=== PATIENT | female | born 2000 | race Caucasian/White ===

== ENCOUNTER 2019-07-10 21:32 | Emergency (ER) | payer SELFPAY ==
[2019-07-10 22:41] LABS: Urine Blood TRACE (NEG); Urine Glucose TRACE (NEG); Urine Protein 2+ (NEG); Urine pH 5.5 (5.0-7.0)
--- NOTE | 2019-07-10 22:48 | ER ---
Nurse's Notes [facility] Name: Kendy Mason Age: 19 yrs Sex: Female : 2000 Arrival Date: 07/10/2019 Time: 21:34 Bed 25 Private MD: Diagnosis: Urinary tract infection, site not specified Presentation: 07/10 21:40 Presenting complaint: Patient states: "I have a really really have bad UTI. I took Azos ca1 but it's not helping. Urinary symptoms started over a week ago. I also see blood when I wipe down there". Denies fever, vomiting, diarrhea. Reports nausea. Transition of care: patient was not received from another setting of care. Onset of symptoms was July 10, 2019. Risk Assessment: Do you want to hurt yourself or someone else? Patient reports no desire to harm self or others. Initial Sepsis Screen: Does the patient meet any 2 criteria? No. Patient's initial sepsis screen is negative. Does the patient have a suspected source of infection? No. Patient's initial sepsis screen is negative. Care prior to arrival: None. 21:40 Method Of Arrival: Ambulatory ca1 21:40 Acuity: PADILLA 3 ca1 [employer]: 21:46 LMP 06/13/2019 ca1 Historical: - Allergies: 21:44 No Known Allergies; ca1 - Home Meds: 21:44 None [Active]; ca1 - PMHx: 21:44 None; ca1 - PSHx: 21:44 None; ca1 - Immunization history:: Adult Immunizations up to date, Flu vaccine is not up to date. - Coronavirus screen:: The patient has NOT traveled to [place], [place], or [place] in the past 14 days. The patient has NOT had contact with known/suspected case of Coronavirus?. - Social history:: Smoking status: Patient denies any tobacco usage or history of. - Ebola Screening: : Patient negative for fever greater than or equal to 101.5 degrees Fahrenheit, and additional compatible Ebola Virus Disease symptoms Patient denies exposure to infectious person Patient denies travel to an Ebola-affected area in the 21 days before illness onset No symptoms or risks identified at this time. Vital Signs: 21:44 BP 120 / 60; Pulse 89; Resp 17 S; Temp 97.4(O); Pulse Ox 98% on R/A; Weight 63.5 kg ca1 (R); Height 5 ft. 2 in. (157.48 cm) (M); 21:44 Body Mass Index 25.61 (63.50 kg, 157.48 cm) ca1 ED Course: 21:34 Patient arrived in ED. ag3 21:44 Triage completed. ca1 21:44 Arm band placed on right wrist. ca1 21:54 Isaiah Zacarias MD is Attending Physician. tw4 22:12 Marietta Eelna, RN is Primary Nurse. vc Administered Medications: No medications were administered Outcome: 22:48 Discharge ordered by . tw4 23:26 Patient left the ED. vc Signatures: Isaiah Zacarias MD MD 4 Ilda Marie 3 Melina Liu RN RN [facility] Marietta Elena RN RN vc
--- NOTE | 2019-07-11 23:29 | EDPHYS ---
Physician Documentation [facility] Name: Kendy Mason Age: 19 yrs Sex: Female : 2000 Arrival Date: 07/10/2019 Time: 21:34 Bed 25 Private MD: ED Physician Isaiah Zacarias HPI: 07/11 04:39 This 19 yrs old Female presents to ER via Ambulatory with complaints of Pain tw4 With Urination. 04:39 The patient presents with urinary symptoms, dysuria, frequency. Onset: The tw4 symptoms/episode began/occurred today. Modifying factors: The symptoms are alleviated by nothing, the symptoms are aggravated by nothing. Associated signs and symptoms: The patient has no apparent associated signs or symptoms. Severity of symptoms: At their worst the symptoms were moderate, in the emergency department the symptoms are unchanged. The patient has not experienced similar symptoms in the past. [employer]: 07/10 21:46 LMP 06/13/2019 ca1 Historical: - Allergies: 21:44 No Known Allergies; ca1 - Home Meds: 21:44 None [Active]; ca1 - PMHx: 21:44 None; ca1 - PSHx: 21:44 None; ca1 - Immunization history:: Adult Immunizations up to date, Flu vaccine is not up to date. - Coronavirus screen:: The patient has NOT traveled to [place], [place], or [place] in the past 14 days. The patient has NOT had contact with known/suspected case of Coronavirus?. - Social history:: Smoking status: Patient denies any tobacco usage or history of. - Ebola Screening: : Patient negative for fever greater than or equal to 101.5 degrees Fahrenheit, and additional compatible Ebola Virus Disease symptoms Patient denies exposure to infectious person Patient denies travel to an Ebola-affected area in the 21 days before illness onset No symptoms or risks identified at this time. ROS: 07/11 04:39 Positive for urinary symptoms, burning with urination, difficulty urinating, tw4 Negative for injury or acute deformity, urinary frequency, hematuria, pelvic pain, flank pain, vaginal itching, menstrual abnormality. Constitutional: Negative for fever, chills, and weight loss, Eyes: Negative for injury, pain, redness, and discharge, Cardiovascular: Negative for chest pain, palpitations, and edema, Respiratory: Negative for shortness of breath, cough, wheezing, and pleuritic chest pain, Abdomen/GI: Negative for abdominal pain, nausea, vomiting, diarrhea, and constipation, Back: Negative for injury and pain, MS/Extremity: Negative for injury and deformity, Skin: Negative for injury, rash, and discoloration, Neuro: Negative for headache, weakness, numbness, tingling, and seizure. Exam: 04:39 Constitutional: This is a well developed, well nourished patient who is awake, alert, tw4 and in no acute distress. Head/Face: Normocephalic, atraumatic. Chest/axilla: Normal chest wall appearance and motion. Nontender with no deformity. No lesions are appreciated. Cardiovascular: Regular rate and rhythm with a normal S1 and S2. No gallops, murmurs, or rubs. Normal PMI, no JVD. No pulse deficits. Respiratory: Lungs have equal breath sounds bilaterally, clear to auscultation and percussion. No rales, rhonchi or wheezes noted. No increased work of breathing, no retractions or nasal flaring. Abdomen/GI: Soft, non-tender, with normal bowel sounds. No distension or tympany. No guarding or rebound. No evidence of tenderness throughout. Back: No spinal tenderness. No costovertebral tenderness. Full range of motion. Skin: Warm, dry with normal turgor. Normal color with no rashes, no lesions, and no evidence of cellulitis. MS/ Extremity: Pulses equal, no cyanosis. Neurovascular intact. Full, normal range of motion. Neuro: Awake and alert, GCS 15, oriented to person, place, time, and situation. Cranial nerves II-XII grossly intact. Motor strength 5/5 in all extremities. Sensory grossly intact. Cerebellar exam normal. Normal gait. Vital Signs: 07/10 21:44 BP 120 / 60; Pulse 89; Resp 17 S; Temp 97.4(O); Pulse Ox 98% on R/A; Weight 63.5 kg ca1 (R); Height 5 ft. 2 in. (157.48 cm) (M); 21:44 Body Mass Index 25.61 (63.50 kg, 157.48 cm) ca1 MDM: 21:54 Patient medically screened. tw4 07/11 04:39 Differential diagnosis: urinary tract infection. Data reviewed: vital signs, nurses tw4 notes. Data reviewed: lab test result(s), urinalysis, bacteruria. Data interpreted: Pulse oximetry: Interpretation: normal. Counseling: I had a detailed discussion with the patient and/or guardian regarding: the historical points, exam findings, and any diagnostic results supporting the discharge/admit diagnosis. Special discussion: I discussed with the patient/guardian in detail that at this point there is no indication for admission to the hospital. It is understood, however, that if the symptoms persist or worsen the patient needs to return immediately for re-evaluation. 07/10 22:27 Order name: Urine Dipstick--Ancillary (enter results) cm6 07/10 22:20 Order name: Urine Dipstick-Ancillary (obtain specimen); Complete Time: 22:31 tw4 07/10 22:27 Order name: Urine --Ancillary (enter results) cm6 Administered Medications: No medications were administered Disposition: 05:20 Chart complete. Disposition: 07/10/19 22:48 Discharged to Home. Impression: Urinary tract infection, site not specified. - Condition is Stable. - Discharge Instructions: Urinary Tract Infection, Adult. - Prescriptions for Pyridium 200 mg Oral Tablet - take 1 tablet by ORAL route every 8 hours for 3 days; 9 tablet. Zofran 4 mg Oral Tablet - take 1 tablet by ORAL route every 12 hours As needed; 20 tablet. Macrobid 100 mg Oral Capsule - take 1 capsule by ORAL route every 12 hours for 10 days; 20 capsule. - Medication Reconciliation Form, Thank You Letter, Antibiotic Education, Prescription Opioid Use form. - Follow up: Private Physician; When: Upon discharge from the Emergency Department; Reason: Recheck today's complaints, Continuance of care. - Problem is new. - Symptoms have improved. Signatures: Dispatcher [employer] EDMS Isaiah Zacarias MD MD tw4 Melina Liu RN RN ca1 Marietta Elena RN RN vc Corrections: (The following items were deleted from the chart) 07/10 23:26 22:48 07/10/2019 22:48 Discharged to Home. Impression: Urinary tract infection, site vc not specified. Condition is Stable. Forms are Medication Reconciliation Form, Thank You Letter, Antibiotic Education, Prescription Opioid Use. Follow up: Private Physician; When: Upon discharge from the Emergency Department; Reason: Recheck today's complaints, Continuance of care. Problem is new. Symptoms have improved. tw4
== END 2019-07-10 23:26 | disposition home or self-care (01) ==
LOC: ER 21:32
DX: N39.0 Urinary tract infection, site not specified (principal)
CPT/HCPCS: 81003; 81025; 99281

== ENCOUNTER 2023-10-10 15:51 | Emergency (ER) | payer SELFPAY ==
[2023-10-10] MEDS ORDERED: ONDANSETRON 4 MG/2 ML VIAL ONE (16:37)
[2023-10-10] MEDS ORDERED: NA CHLORIDE 0.9% 1,000 ML ONE (16:38)
[2023-10-10] MEDS ORDERED: KETOROLAC 30 MG/ML INJ ONE (16:38)
[2023-10-10 17:04] LABS: Absolute Basophils 0.1 K/uL (0-0.5); Absolute Eosinophils 0.1 K/uL (0-0.5); Absolute Lymphocytes (CBC) 2.3 K/uL (0.7-4.9); Absolute Monocytes 0.6 K/uL (0.1-1.3); Absolute Neutrophil 7.5 K/uL (1.8-8.0); Basophils % 0.6 % (0-1.3); Eosinophils % 1.3 % (0-4.4); Hematocrit 39.9 % (36.0-45.0); Hemoglobin 13.2 g/dL (12.0-15.0); Lymphocytes % 21.8 % (15.3-44.8); MCH 27.9 pg (27.0-35.0); MCHC 33.2 g/dL (32.0-36.0); MCV 84.1 fL (80-100); MPV 8.1 fL (7.6-11.3); Monocytes % 5.5 % (3.3-12.3); Neutrophils % 70.8 % (41.7-73.7); Platelets 318 thou/uL (152-406); RBC Red Blood Cell Count 4.74 M/uL (3.86-4.86); Red Cell Distribution Width 13.5 % (12.1-15.2)
[2023-10-10 17:06] LABS: Specific Gravity 1.025 (1.005-1.030)
[2023-10-10 17:19] LABS: Albumin 3.8 g/dL (3.4-5.0); Albumin/Globulin Ratio 0.9 (1.1-1.8); Anion Gap 8.8 mEq/L (5.0-15.0); Bilirubin Total 0.8 mg/dL (0.2-1.0); Globulin 4.1 g/dL (2.3-3.5); Potassium 3.8 mEq/L (3.5-5.1); Protein, Total 7.9 g/dL (6.4-8.2)
[2023-10-10 17:38] LABS: Urine Bacteria <20 /HPF (<20); Urine Culture Reflex Order NOT NEEDED; Urine Micro Reflex YN NO BILL MICROSCOPIC; Urine Mucus Slight /HPF (None Seen); Urine RBC <5 /HPF (None Seen)
--- NOTE | 2023-10-10 18:27 | RAD REPORT ---
EXAM DESCRIPTION: US - Transvaginal OB - 10/10/2023 6:14 pm CLINICAL HISTORY: positive test;Abd pain COMPARISON: OBSTETRICAL COMPLETE dated 10/06/2014 FINDINGS: A single gestational sac is seen within the uterus. The shape of the sac is somewhat oblon g. Within the sac is a single pole with crown-rump length of 8 mm, correlating to estimated ges tational age of 6 weeks 6 days. Estimated date of delivery is 05/30/2024. Heart rate is 122 BPM. The placenta is not yet developed due to early gestational age. The maternal adnexa and ovaries are within normal limits. Normal Doppler blood flow was demonstrated to both ovaries. IMPRESSION: Single live early intrauterine gestation with estimated gestational age of 6 weeks 6 day s, LEONARDO 05/30/2024. Heart rate is 122 BPM.
--- NOTE | 2023-10-10 19:33 | ER ---
Nurse's Notes [facility] Name: Kendy Mason Age: 23 yrs Sex: Female : 2000 Arrival Date: 10/10/2023 Time: 15:51 Bed 13 Private MD: Diagnosis: related conditions, unspecified, first trimester;Lower abdominal pain, unspecified;Headache Presentation: 10/09 15:58 Chief complaint: Patient states: RLQ pain that started last night/early this morning. as6 Coronavirus screen: At this time, the client does not indicate any symptoms associated with coronavirus-19. Ebola Screen: No symptoms or risks identified at this time. Initial Sepsis Screen: Does the patient meet any 2 criteria? No. Patient's initial sepsis screen is negative. Does the patient have a suspected source of infection? No. Patient's initial sepsis screen is negative. Risk Assessment: Do you want to hurt yourself or someone else? Patient reports no desire to harm self or others. Onset of symptoms was October 10, 2023. 15:58 Acuity: PADILLA 3 as6 15:58 Method Of Arrival: Ambulatory as6 Triage Assessment: 16:00 Headache History: The patient has had previous headaches and this one is similar to bp previous episodes. General: Appears in no apparent distress. Behavior is cooperative, appropriate for age, anxious. Pain: Complains of pain in head Pain currently is 6 out of 10 on a pain scale. Pain began 1 day ago. Also complains of no other associated symptoms. Neuro: Level of Consciousness is awake, alert, obeys commands, Oriented to Appropriate for age. [employer]GER: 16:00 LMP 09/11/2023, unknown as6 Historical: - Allergies: 16:00 No Known Allergies; as6 - PMHx: 16:00 None; as6 - PSHx: 16:00 None; as6 - Immunization history:: Adult Immunizations up to date. - Infectious Disease History:: Denies. - Social history:: Smoking status: Patient denies any tobacco usage or history of. Screenin:00 [facility] ED Fall Risk Assessment (Adult) History of falling in the last 3 months, bp including since admission No falls in past 3 months (0 pts). Abuse screen: Denies threats or abuse. Denies injuries from another. Nutritional screening: No deficits noted. Tuberculosis screening: No symptoms or risk factors identified. Assessment: 16:00 General: Appears in no apparent distress. Behavior is cooperative, appropriate for age, bp anxious, SEE TRIAGE NOTE. Pain: Complains of pain in head. Neuro: Reports headache. GI: Reports lower abdominal pain. 18:00 Reassessment: No changes from previously documented assessment. Patient is alert, bp oriented x 3, equal unlabored respirations, skin warm/dry/pink. 19:10 General: Appears in no apparent distress. comfortable, Behavior is calm, cooperative. jw7 Pain: Denies pain. Neuro: Level of Consciousness is awake, alert, obeys commands, Oriented to person, place, time, situation. Cardiovascular: Heart tones S1 S2 present Capillary refill < 3 seconds Clubbing of nail beds is absent JVD is absent Patient's skin is warm and dry. Respiratory: Airway is patent Trachea midline Respiratory effort is even, unlabored, Respiratory pattern is regular, symmetrical, Breath sounds are clear bilaterally. GI: Abdomen is round non-distended, Bowel sounds present X 4 quads. Abd is soft and non tender X 4 quads. : No deficits noted. No signs and/or symptoms were reported regarding the genitourinary system. EENT: No deficits noted. No signs and/or symptoms were reported regarding the EENT system. Derm: Skin is intact, is healthy with good turgor, Skin is dry, Skin is normal, Skin temperature is warm. Musculoskeletal: Circulation, motion, and sensation intact. Range of motion: intact in all extremities. Vital Signs: 15:58 BP 132 / 80; Pulse 86; Resp 17 S; Temp 98; Pulse Ox 97% ; Weight 79.38 kg (R); Height 5 as6 ft. 2 in. (R); Pain 4/10; 18:00 BP 117 / 82; Pulse 82; Resp 16; Pulse Ox 100% ; bp 19:00 BP 100 / 74; Pulse 84; Resp 16 S; Pulse Ox 100% on R/A; jw7 15:58 Body Mass Index 32.01 (79.38 kg, 157.48 cm) as6 15:58 Pain Scale: Adult as6 ED Course: 15:55 Patient arrived in ED. im 15:58 Arm band placed on left wrist. as6 16:00 Triage completed. as6 16:04 Eliceo Saucedo PA is PHCP. cp 16:04 Eliceo Kathleen MD is Attending Physician. cp 16:17 Leonardo Dailey, MARTINEZ is Primary Nurse. bp 16:50 Inserted saline lock: 22 gauge in right forearm, using aseptic technique. Blood bp collected. 16:52 Urine Microscopic Only Sent. bp 16:52 Test, Urine Sent. bp 16:52 Lipase Sent. bp 16:52 CMP Sent. bp 16:52 CBC with Diff Sent. bp 18:00 Patient has correct armband on for positive identification. bp 18:16 US Transvaginal Ob In Process Unspecified. EDMS 18:39 Quantitative Hcg Sent. bp 18:39 Abo/rh Typing Sent. bp 19:00 Provided Education on: Use of Call Light. jw7 19:48 No provider procedures requiring assistance completed. IV discontinued, intact, jw7 bleeding controlled, No redness/swelling at site. Pressure dressing applied. Administered Medications: 16:51 Drug: NS 0.9% IV 1000 ml IV at 1 bolus Per protocol; 1000 mL bolus Route: IV; Rate: 1 bp bolus; Site: right forearm; 19:27 Follow up: Response: No adverse reaction; IV Status: Completed infusion; IV Intake: jw7 1000ml 16:51 Drug: TORadol - Ketorolac IVP 15 mg IVP once Route: IVP; Site: right forearm; bp 19:27 Follow up: Response: No adverse reaction; Marked relief of symptoms; Pain is decreased jw7 16:51 Drug: Ondansetron IVP 4 mg IVP once; over 2 minutes Route: IVP; Site: right forearm; bp 19:27 Follow up: Response: No adverse reaction; Marked relief of symptoms; Nausea is decreasedjw7 19:45 Drug: Acetaminophen PO 1000 mg PO once Route: PO; jw7 19:45 Follow up: Response: No adverse reaction; Medication administered at discharge. jw7 Medication: 18:00 VIS not applicable for this client. bp Intake: 19:27 IV: 1000ml; Total: 1000ml. jw7 Outcome: 19:32 Discharge ordered by . cp 19:48 Discharged to home ambulatory, jw7 19:48 Condition: stable 19:48 Discharge instructions given to patient, Instructed on discharge instructions, follow up and referral plans. medication usage, Demonstrated understanding of instructions, follow-up care, medications, Prescriptions given X 1, 19:49 Patient left the ED. jw7 Signatures: Dispatcher [employer] EDMS Eliceo Saucedo PA PA cp Peltier, Brian, RN RN bp Reno Rojas RN RN as6 Kaylie Torres RN RN jw7 Karoline Bowen
--- NOTE | 2023-10-10 19:33 | EDPHYS ---
Physician Documentation [facility] Name: Kendy Mason Age: 23 yrs Sex: Female : 2000 Arrival Date: 10/10/2023 Time: 15:51 Bed 13 Private MD: ED Physician Eliceo Kathleen HPI: 10/09 16:35 This 23 yrs old Female presents to ER via Ambulatory with complaints of cp Headache, Abdominal Pain. 16:35 The patient presents with abdominal pain right lower quadrant. Onset: The cp symptoms/episode began/occurred this morning, and became worse today. The symptoms do not radiate. Associated signs and symptoms: Pertinent negatives: anorexia, diarrhea, dysuria, fever, vaginal discharge, vaginal bleeding. The symptoms are described as waxing/waning. 16:35 Modifying factors: the symptoms are aggravated by movement. Severity of pain: in the cp emergency department the pain is unchanged despite home interventions. 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 - Infectious Disease History:: Denies. - Social history:: Smoking status: Patient denies any tobacco usage or history of. ROS: 16:40 Eyes: Negative for injury, pain, redness, and discharge, cp 16:40 Constitutional: Negative for body aches, chills, fever, poor PO intake, 16:40 ENT: Negative for drainage from ear(s), ear pain, sore throat, difficulty swallowing, difficulty handling secretions, 16:40 Cardiovascular: Negative for chest pain, edema, palpitations, 16:40 Respiratory: Negative for cough, shortness of breath, wheezing, 16:40 Abdomen/GI: Positive for abdominal pain, of the right lower quadrant and right adnexal, Negative for vomiting, diarrhea, constipation, anorexia, 16:40 : Negative for urinary symptoms, hematuria, flank pain, burning with urination, vaginal bleeding, vaginal discharge, 16:40 Skin: Negative for rash, 16:40 Neuro: Positive for headache, cp 16:40 All other systems are negative, cp Exam: 16:45 Constitutional: The patient appears in no acute distress, alert, awake, non-toxic, well cp developed, well nourished, overweight 16:45 Head/Face: Normocephalic, atraumatic. cp 16:45 Eyes: Periorbital structures: appear normal, Conjunctiva: normal, no exudate, no injection, Sclera: no appreciated abnormality, Lids and lashes: appear normal, bilaterally, 16:45 ENT: External ear(s): are unremarkable, Nose: is normal, Mouth: Lips: moist, Oral mucosa: pink and intact, moist, Posterior pharynx: Airway: no evidence of obstruction, patent, 16:45 Chest/axilla: Inspection: normal, 16:45 Cardiovascular: Rate: normal, Rhythm: regular, 16:45 Respiratory: the patient does not display signs of respiratory distress, Respirations: normal, no use of accessory muscles, no retractions, labored breathing, is not present, Breath sounds: are clear throughout, no decreased breath sounds, no stridor, no wheezing, 16:45 Abdomen/GI: Inspection: abdomen appears normal, Bowel sounds: active, all quadrants, Palpation: soft, in all quadrants, moderate abdominal tenderness, in the right lower quadrant and right adnexa, rebound tenderness, is not appreciated, involuntary guarding, is not appreciated, 16:45 Back: pain, is absent, ROM is normal, Vital Signs: 15:58 BP 132 / 80; Pulse 86; Resp 17 S; Temp 98; Pulse Ox 97% ; Weight 79.38 kg (R); Height 5 as6 ft. 2 in. (R); Pain 4/10; 18:00 BP 117 / 82; Pulse 82; Resp 16; Pulse Ox 100% ; bp 19:00 BP 100 / 74; Pulse 84; Resp 16 S; Pulse Ox 100% on R/A; jw7 15:58 Body Mass Index 32.01 (79.38 kg, 157.48 cm) as6 15:58 Pain Scale: Adult as6 MDM: 16:05 Patient medically screened. cp 19:30 Data reviewed: vital signs, nurses notes, lab test result(s), radiologic studies, CT cp scan. 19:30 Differential diagnosis: appendicitis, Ectopic , non-specific abd pain, Ovarian cp Torsion, Pelvic Inflammatory Disease, Pyelonephritis, Tubal Ovarian Abcess, Ureterolithiasis, urinary tract infection. I considered the following discharge prescriptions or medication management in the emergency department Medications were administered in the Emergency Department. See MAR. Test considered but Not performed: CT: abdomen/pelvis. Counseling: I had a detailed discussion with the patient and/or guardian regarding the historical points, exam findings, and any diagnostic results supporting the discharge/admit diagnosis, lab results, radiology results, the need for outpatient follow up, an OB/Gyne specialist, to return to the emergency department if symptoms worsen or persist or if there are any questions or concerns that arise at home. Response to treatment: the patient's symptoms have markedly improved after treatment, and as a result, I will discharge patient. 10/09 16:07 Order name: Urine Microscopic Only; Complete Time: 18:01 cp 10/09 16:07 Order name: Test, Urine; Complete Time: 17:30 cp 10/09 16:32 Order name: CBC with Diff; Complete Time: 17:30 cp 10/09 16:32 Order name: CMP; Complete Time: 17:30 cp 10/09 18:01 Interpretation: Normal except: NA 134; AST 9; GLOB 4.1; A/G 0.9. cp 10/09 16:32 Order name: Lipase; Complete Time: 17:30 cp 10/09 17:30 Order name: Abo/rh Typing; Complete Time: 19:26 cp 10/09 19:26 Interpretation: Reviewed. cp 10/09 17:30 Order name: Quantitative Hcg; Complete Time: 19:26 cp 10/09 19:26 Interpretation: Reviewed. cp 10/09 17:30 Order name: US Transvaginal Ob; Complete Time: 18:55 cp 10/09 19:27 Interpretation: Report reviewed. cp 10/09 16:32 Order name: IV Saline Lock; Complete Time: 16:51 cp 10/09 16:32 Order name: Labs collected and sent; Complete Time: 16:51 cp 10/09 17:30 Order name: NPO; Complete Time: 17:41 cp Administered Medications: 16:51 Drug: NS 0.9% IV 1000 ml IV at 1 bolus Per protocol; 1000 mL bolus Route: IV; Rate: 1 bp bolus; Site: right forearm; 19:27 Follow up: Response: No adverse reaction; IV Status: Completed infusion; IV Intake: jw7 1000ml 16:51 Drug: TORadol - Ketorolac IVP 15 mg IVP once Route: IVP; Site: right forearm; bp 19:27 Follow up: Response: No adverse reaction; Marked relief of symptoms; Pain is decreased jw7 16:51 Drug: Ondansetron IVP 4 mg IVP once; over 2 minutes Route: IVP; Site: right forearm; bp 19:27 Follow up: Response: No adverse reaction; Marked relief of symptoms; Nausea is decreasedjw7 19:45 Drug: Acetaminophen PO 1000 mg PO once Route: PO; jw7 19:45 Follow up: Response: No adverse reaction; Medication administered at discharge. jw7 Disposition: 22:15 Co-signature as Attending Physician, Eliceo Kathleen MD I agree with the assessment and guille plan of care. Disposition Summary: 10/10/23 19:32 Discharge Ordered Notes: Location: Home cp Problem: new cp Symptoms: have improved cp Condition: Stable cp Diagnosis - related conditions, unspecified, first trimester cp - Lower abdominal pain, unspecified cp - Headache cp Followup: cp - With: Private Physician - When: 1 week - Reason: Recheck today's complaints Discharge Instructions: - Discharge Summary Sheet cp - Abdominal Pain During cp - Care cp - First Trimester of cp Forms: - Medication Reconciliation Form cp - Antibiotic Education cp - Prescription Opioid Use cp - Patient Portal Instructions cp - Leadership Thank You Letter cp Prescriptions: - [id number] fumarate-FA - take 1 tablet ORAL route once daily; 60 tablet; Refills: 0, Product Selection cp Permitted Signatures: Dispatcher [employer] Eliceo Cordova MD MD cha Page, Corey, PA PA cp Leonardo Dailey, RN RN Reno Artis RN RN as6 Kaylie Torres RN RN jw7 Corrections: (The following items were deleted from the chart) 16:07 16:07 Urine Microscopic+U.LAB.BRZ ordered. EDMS EDMS 16:07 16:07 Test, Urine+UC.LAB.BRZ ordered. EDMS EDMS 16:32 16:32 CBC+H.LAB.BRZ ordered. EDMS EDMS 16:32 16:32 COMPREHENSIVE METABOLIC PANEL+C.LAB.BRZ ordered. EDMS EDMS 16:32 16:32 LIPASE+C.LAB.BRZ ordered. EDMS EDMS 16:32 16:32 Abdomen Pelvis W Con+CT.RAD.BRZ ordered. EDMS EDMS 17:31 17:31 Transvaginal Ob+US.RAD.BRZ ordered. EDMS EDMS 10/10 16:30 Constitutional: Negative for body aches, chills, fever, poor PO intake, cp cp /06 24:10/09 16:30 Cardiovascular: Negative for chest pain, edema, palpitations, cp cp 05/10/09 16:30 Respiratory: Negative for cough, shortness of breath, wheezing, cp cp 05/06 24:10/09 16:30 Abdomen/GI: Positive for abdominal pain, of the right lower quadrant and cp right adnexal, Negative for vomiting, diarrhea, constipation, anorexia, cp /10/09 16:30 : Negative for urinary symptoms, hematuria, flank pain, burning with cp urination, vaginal bleeding, vaginal discharge, cp /10/09 16:30 Eyes: Negative for injury, pain, redness, and discharge, cp cp 05/06 24:10/09 16:30 ENT: Negative for drainage from ear(s), ear pain, sore throat, difficulty cp swallowing, difficulty handling secretions, cp /06 24:10/09 16:30 Skin: Negative for rash, cp cp 05/10/09 16:30 All other systems are negative, cp cp 05/06 24:10/09 16:40 All other systems are negative, cp cp
[2023-10-10] MEDS ORDERED: ACETAMINOPHEN 500 MG TAB ONE (19:39)
[2023-10-10 20:41] VITALS: BP 100/74; TEMP 98; O2SAT 100
== END 2023-10-10 19:49 | disposition home or self-care (01) ==
LOC: ER 15:51
DX: O26.891 Other specified pregnancy related conditions, first trimester (principal); R51.9 Headache, unspecified; R10.31 Right lower quadrant pain; Z3A.01 Less than 8 weeks gestation of pregnancy
CPT/HCPCS: 36415; 76817; 80053; 81015; 81025; 83690; 84702; 85025; 86900; 86901; 96361; 96374; 96375; 99284; J2405; J7030

== ENCOUNTER 2024-05-18 12:58 | Emergency (ER) | payer SELFPAY ==
--- OUTSIDE RECORDS SUMMARY | 2024-05-18 13:02 | XMS REPORT | Continuity of Care Document ---
Author Name Unknown Address [address] [facility] [address] [place] [address] [facility] thconnect Address [address] [facility] [address] [place] [address] Care Team Providers Care Almond Roaster Name Role Phone Lizbeth Topete Primary Care Physicia n BRANT MAYNARD Attending Clinician Unavailable Brant Landeros Attending Clinician [phone] LIZBETH VALERIO Attending Clinician Unavail Fabiana Momin CNM Attending Clinician [phone] FABIANA TRAN Attending Clinician UnavailLizbeth Brown Attending Clinician + FELICITA WILLIAM Attending Clinician UnavailFelicita Islas Attending Clinician + [phone] Doctor Unassigned, [place] Attending Clinician BEATRICE Porras Attending Clinician Jaime Mariscal RN, Dorene Estevez Attending Clinician UnavailBeatrice Espnio Attending Clinician [phone] [facility] Unavailable Payers Payer Name Policy Type Policy Number Effective Date Expirati on Date Source Problems Condition Name Condition Details Condition Category Status Onset Date Resolution Date Last Treatment Date Treating Clinician Comments Source Class 1 obesity due to excess calories with body mass index (BMI) of 31.0 to 31.9 in adult, unspecifie d whether serious comorbidit y present Class 1 obesity due to excess calories with body mass index (BMI) of 31.0 to 31.9 in adult, unspecifie d whether serious comorbidit y present Disease Active 0 8- 00:00: 00 [facility] BMI 31.0-31.9, adult BMI 31.0-31.9, adult Disease Resolve d 0 8- 00:00: 00 2024-02-23 00:00:00 2024-02-23 14:10:19 [facility] Class 1 obesity due to excess calories with body mass index (BMI) of 31.0 to 31.9 in adult, unspecifie d whether serious comorbidit y present Class 1 obesity due to excess calories with body mass index (BMI) of 31.0 to 31.9 in adult, unspecifie d whether serious comorbidit y present Disease Resolve d 0 8-23 00:00: 00 2022-10-25 00:00:00 2022-10-25 19:47:39 [facility] Dysuria Dysuria Disease Resolve d 9-16 00:00: 00 2022-10-25 00:00:00 2022-10-25 19:47:34 [facility] Over weight Over weight Disease Resolve d 0 2-26 00:00: 00 2022-10-25 00:00:00 2022-10-25 19:47:30 [facility] Screening examinatio n for STD (sexually transmitte d disease) Screening examinatio n for STD (sexually transmitte d disease) Disease Resolve d 2016-06 1 00:00: 00 2022-10-25 00:00:00 2022-10-25 19:47:32 [facility] Vaginal discharge Vaginal discharge Disease Resolve d 0 2-26 00:00: 00 2021-02-25 00:00:00 2021-02-25 16:30:03 [facility] Dysmenorrh ea Dysmenorrh ea Disease Resolve d 2019-0 3-12 00:00: 00 2021-02-25 00:00:00 2021-02-25 15:42:23 [facility] care and examinatio n of lactating mother care and examinatio n of lactating mother Disease Resolve d 2016-06 0-18 00:00: 00 2017-04-14 00:00:00 2017-04-14 15:54:11 [facility] (spontaneo us vaginal delivery) (spontaneo us vaginal delivery) Disease Resolve d 03-05 00:00: 00 2017-04-14 00:00:00 2017-04-14 15:54:17 [facility] Liveborn infant by vaginal delivery Liveborn by vaginal delivery Disease Resolve d 03-05 00:00: 00 2017-04-14 00:00:00 2017-04-14 15:54:14 [facility] 39 weeks gestation of 39 weeks gestation of Disease Resolve d 03-03 00:00: 00 2017-04-14 00:00:00 2017-04-14 15:54:13 [facility] Supervisio n of high risk , antepartum , third trimester Supervisio n of high risk , antepartum , third trimester Disease Resolve d 01-03 00:00: 00 2017-04-14 00:00:00 2017-04-14 15:54:16 [facility] Multiparit y Multiparit y Disease Resolve d 10-05 00:00: 00 2017-04-14 00:00:00 2017-04-14 15:54:15 [facility] Unspecifie d hemorrhage in early , antepartum Unspecifie d hemorrhage in early , antepartum Disease Resolve d 01-03 00:00: 00 2017-03-06 00:00:00 2017-03-06 04:11:21 [facility] Missed menses Missed menses Disease Resolve d 10-05 00:00: 00 2017-03-04 00:00:00 2017-03-04 10:06:07 [facility] Supervisio n of high-risk of elderly multigravi da, third trimester Supervisio n of high-risk of elderly multigravi da, third trimester Disease Resolve d 12-20 00:00: 00 2017-01-03 00:00:00 2017-01-03 15:54:55 [facility] Supervisio n of high risk , antepartum , second trimester Supervisio n of high risk , antepartum , second trimester Disease Resolve d 10-05 00:00: 00 2016-12-20 00:00:00 2016-12-20 15:01:20 [facility] Allergies, Adverse Reactions, Alerts Allergy Name Allergy Type Status Severity Reaction(s) Onset Date Inactive Date Treating Clinician Comments Source NO KNOWN ALLERGIE S Drug Class Active [facility] Social History Social Habit Start Date Stop Date Quantity Comments Source History SDOH Alcohol Frequency [facility] History SDOH Alcohol Std Drinks [facility] History SDOH Alcohol Binge [facility]coholic beverage intake 2024-03-08 00:00:00 2024-03-08 00:00:00 Current drinker of alcohol (finding) [facility] History of Social function 2024-02-23 00:00:00 2024-02-23 00:00:00 [facility] Exposure to SARS-CoV-2 (event) 2022-10-15 00:00:00 2022-10-25 13:30:00 Not sure [facility] Tobacco use and exposure 2022-02-01 00:00:00 2022-02-01 00:00:00 Smokeless tobacco non-user [facility] Alcohol Comment 2022-02-01 00:00:00 2022-02-01 00:00:00 socially [facility] Alcohol intake 2019-08-22 00:00:00 2019-08-22 00:00:00 Current non-drinker of alcohol (finding) [facility] Sex assigned at 2000 00:00:00 2000 00:00:00 [facility] Smoking Status Start Date Stop Date Source Never smoked tobacco [facility] Medications Ordered Medication Name Filled Medication Name Start Date Stop Date Current Medication? Ordering Clinician Indication Dosage Frequency Signature (SIG) Comments Components Source levonorgest rel-ethinyl estradiol (SRONYX) 0.1-20 mg-mcg per tablet 03-08 00:00: 00 Yes [id number] 1{tbl} Take 1 tablet by mouth in the morning. [facility] doxycycline hyclate 100 mg capsule 02-25 00:00: 00 03-05 04:59 :00 Yes [id number] 100mg Take 1 capsule by mouth every 12 (twelve) hours for 7 days. [facility] metroNIDAZO LE 500 mg tablet 02-22 00:00: 00 Yes [id number] 500mg Take 1 tablet by mouth every 12 (twelve) hours. [facility] Nitrofurant oin&Nit. Macrocryst (MACROBID) 100 mg capsule 10-31 00:00: 00 11-11 04:59 :00 No [id number] 100mg Take 1 capsule by mouth in the morning and 1 capsule in the evening. Do all this for 10 days. [facility] levonorgest rel-ethinyl estradiol (SRONYX) 0.1-20 mg-mcg per tablet 07-20 00:00: 00 03-08 00:00 :00 No [id number] 1{tbl} Take 1 tablet by mouth in the morning. [facility] metroNIDAZO LE 500 mg tablet 2021-06 00:00: 00 10-25 00:00 :00 No [id number] 500mg Take 1 tablet by mouth in the morning and 1 tablet in the evening. [facility] levonorgest rel-ethinyl estradiol (SRONYX) 0.1-20 mg-mcg per tablet 2021-06 00:00: 00 07-20 00:00 :00 No [id number] 1{tbl} Take 1 tablet by mouth in the morning. [facility] azithromyci n 500 mg tablet 02-02 00:00: 00 02-04 04:59 :00 No [id number] 1000mg Take 2 tablets by mouth in the morning for 1 day. [facility] ariadne davidson ioL-iron (MICROGESTI N FE) 1.5 mg-30 mcg (21)/75 mg (7) per tablet 02-25 00:00: 00 10-25 00:00 :00 No [id number] Take 1 tablet daily. Take 3 packages of pills continuous ly, skipping placebo pills. [facility] Immunizations Ordered Immunization Name Filled Immunization Name Date Status Comments Source Influenza, split virus, trivalent, PF (AFLURIA/FLUARIX/FLU LAVAL/FLUZONE) 2024-03-08 00:00:00 Completed Influenza, split virus, trivalent, PF (AFLURIA/FLUARIX/FLU LAVAL/FLUZONE) 2024-03-08 00:00:00 Completed TDAP 2016-12-20 00:00:00 Completed [facility] TDAP 2016-12-20 00:00:00 Completed [facility] TDAP 2016-12-20 00:00:00 Completed [facility] TDAP 2016-12-20 00:00:00 Completed [facility] TDAP 2016-12-20 00:00:00 Completed [facility] TDAP 2016-12-20 00:00:00 Completed [facility] TDAP 2016-12-20 00:00:00 Completed [facility] TDAP 2016-12-20 00:00:00 Completed [facility] HPV 2013-02-12 00:00:00 Completed [facility] HPV 2013-02-12 00:00:00 Completed [facility] HPV 2013-02-12 00:00:00 Completed [facility] HPV 2013-02-12 00:00:00 Completed [facility] HPV 2013-02-12 00:00:00 Completed [facility] HPV 2013-02-12 00:00:00 Completed [facility] HPV 2013-02-12 00:00:00 Completed HPV 2013-02-12 00:00:00 Completed HPV 2012-10-12 00:00:00 Completed [facility] HPV 2012-10-12 00:00:00 Completed [facility] HPV 2012-10-12 00:00:00 Completed [facility] HPV 2012-10-12 00:00:00 Completed [facility] HPV 2012-10-12 00:00:00 Completed [facility] HPV 2012-10-12 00:00:00 Completed [facility] HPV 2012-10-12 00:00:00 Completed [facility] HPV 2012-10-12 00:00:00 Completed [facility] Meningococcal Polysaccharide (groups A, C, Y and W-135) conjugate vaccine (MCV4P) 2011-01-28 00:00:00 Completed [facility] Varicella (varivax)(chicken pox) 2011-01-28 00:00:00 Completed [facility] Meningococcal Polysaccharide (groups A, C, Y and W-135) conjugate vaccine (MCV4P) 2011-01-28 00:00:00 Completed [facility] Varicella (varivax)(chicken pox) 2011-01-28 00:00:00 Completed [facility] Meningococcal Polysaccharide (groups A, C, Y and W-135) conjugate vaccine (MCV4P) 2011-01-28 00:00:00 Completed [facility] Varicella (varivax)(chicken pox) 2011-01-28 00:00:00 Completed [facility] Meningococcal Polysaccharide (groups A, C, Y and W-135) conjugate vaccine (MCV4P) 2011-01-28 00:00:00 Completed [facility] Varicella (varivax)(chicken pox) 2011-01-28 00:00:00 Completed [facility] Meningococcal Polysaccharide (groups A, C, Y and W-135) conjugate vaccine (MCV4P) 2011-01-28 00:00:00 Completed [facility] Varicella (varivax)(chicken pox) 2011-01-28 00:00:00 Completed [facility] Meningococcal Polysaccharide (groups A, C, Y and W-135) conjugate vaccine (MCV4P) 2011-01-28 00:00:00 Completed [facility] Varicella (varivax)(chicken pox) 2011-01-28 00:00:00 Completed [facility] Meningococcal Polysaccharide (groups A, C, Y and W-135) conjugate vaccine (MCV4P) 2011-01-28 00:00:00 Completed Varicella (varivax)(chicken pox) 2011-01-28 00:00:00 Completed Meningococcal Polysaccharide (groups A, C, Y and W-135) conjugate vaccine (MCV4P) 2011-01-28 00:00:00 Completed Varicella (varivax)(chicken pox) 2011-01-28 00:00:00 Completed HEPATITIS A 2004-06-24 00:00:00 Completed [facility] HEPATITIS A 2004-06-24 00:00:00 Completed [facility] HEPATITIS A 2004-06-24 00:00:00 Completed [facility] HEPATITIS A 2004-06-24 00:00:00 Completed [facility] HEPATITIS A 2004-06-24 00:00:00 Completed [facility] HEPATITIS A 2004-06-24 00:00:00 Completed [facility] HEPATITIS A 2004-06-24 00:00:00 Completed HEPATITIS A 2004-06-24 00:00:00 Completed HEPATITIS A 2004-01-20 00:00:00 Completed [facility] MMR 2004-01-20 00:00:00 Completed [facility] HEPATITIS A 2004-01-20 00:00:00 Completed [facility] MMR 2004-01-20 00:00:00 Completed [facility] HEPATITIS A 2004-01-20 00:00:00 Completed [facility] MMR 2004-01-20 00:00:00 Completed [facility] HEPATITIS A 2004-01-20 00:00:00 Completed [facility] MMR 2004-01-20 00:00:00 Completed [facility] HEPATITIS A 2004-01-20 00:00:00 Completed [facility] MMR 2004-01-20 00:00:00 Completed [facility] HEPATITIS A 2004-01-20 00:00:00 Completed [facility] MMR 2004-01-20 00:00:00 Completed [facility] HEPATITIS A 2004-01-20 00:00:00 Completed [facility] MMR 2004-01-20 00:00:00 Completed HEPATITIS A 2004-01-20 00:00:00 Completed [facility] MMR 2004-01-20 00:00:00 Completed Varicella (varivax)(chicken pox) 2000-05-15 00:00:00 Completed [facility] Varicella (varivax)(chicken pox) 2000-05-15 00:00:00 Completed [facility] Varicella (varivax)(chicken pox) 2000-05-15 00:00:00 Completed [facility] Varicella (varivax)(chicken pox) 2000-05-15 00:00:00 Completed [facility] Varicella (varivax)(chicken pox) 2000-05-15 00:00:00 Completed [facility] Varicella (varivax)(chicken pox) 2000-05-15 00:00:00 Completed [facility] Varicella (varivax)(chicken pox) 2000-05-15 00:00:00 Completed Varicella (varivax)(chicken pox) 2000-05-15 00:00:00 Completed MMR 1999-08-31 00:00:00 Completed [facility] MMR 1999-08-31 00:00:00 Completed [facility] MMR 1999-08-31 00:00:00 Completed [facility] MMR 1999-08-31 00:00:00 Completed [facility] MMR 1999-08-31 00:00:00 Completed [facility] MMR 1999-08-31 00:00:00 Completed [facility] MMR 1999-08-31 00:00:00 Completed MMR 1999-08-31 00:00:00 Completed TDAP Unknown Completed [facility] HPV Unknown Completed [facility] HEPATITIS A Unknown Completed [facility] Meningococcal Polysaccharide (groups A, C, Y and W-135) conjugate vaccine (MCV4P) Unknown Completed [facility] MMR Unknown Completed [facility] Varicella (varivax)(chicken pox) Unknown Completed [facility] TDAP Unknown Completed [facility] HPV Unknown Completed [facility] HEPATITIS A Unknown Completed [facility] Meningococcal Polysaccharide (groups A, C, Y and W-135) conjugate vaccine (MCV4P) Unknown Completed [facility] MMR Unknown Completed [facility] Varicella (varivax)(chicken pox) Unknown Completed [facility] TDAP Unknown Completed [facility] HPV Unknown Completed [facility] HEPATITIS A Unknown Completed [facility] Meningococcal Polysaccharide (groups A, C, Y and W-135) conjugate vaccine (MCV4P) Unknown Completed [facility] MMR Unknown Completed [facility] Varicella (varivax)(chicken pox) Unknown Completed [facility] TDAP Unknown Completed [facility] HPV Unknown Completed [facility] HEPATITIS A Unknown Completed [facility] Meningococcal Polysaccharide (groups A, C, Y and W-135) conjugate vaccine (MCV4P) Unknown Completed [facility] MMR Unknown Completed [facility] Varicella (varivax)(chicken pox) Unknown Completed [facility] TDAP Unknown Completed [facility] HPV Unknown Completed [facility] HEPATITIS A Unknown Completed [facility] Meningococcal Polysaccharide (groups A, C, Y and W-135) conjugate vaccine (MCV4P) Unknown Completed [facility] MMR Unknown Completed [facility] Varicella (varivax)(chicken pox) Unknown Completed [facility] Vital Signs Vital Name Observation Time Observation Value Comments S ource Systolic blood pressure 2024-03-08 18:31:00 105 mm[Hg] [facility] Diastolic blood pressure 2024-03-08 18:31:00 72 mm[Hg] [facility] Heart rate 2024-03-08 18:31:00 80 /min [facility] Body temperature 2024-03-08 18:31:00 36.78 Ivonne [facility] Respiratory rate 2024-03-08 18:31:00 18 /min [facility] Body height 2024-03-08 18:31:00 160 cm [facility] Body weight 2024-03-08 18:31:00 78.217 kg [facility] BMI 2024-03-08 18:31:00 30.55 kg/m2 [facility] Systolic blood pressure 2024-02-23 18:16:00 116 mm[Hg] [facility] Diastolic blood pressure 2024-02-23 18:16:00 69 mm[Hg] [facility] Heart rate 2024-02-23 18:16:00 81 /[facility] 2024-02-23 18:16:00 36.61 Ivonne [facility] Respiratory rate 2024-02-23 18:16:00 18 /min [facility] Body height 2024-02-23 18:16:00 160 cm [facility] weight 2024-02-23 18:16:00 78.217 kg [facility] BMI 2024-02-23 18:16:00 30.55 kg/m2 [facility] Systolic blood pressure 2022-10-25 18:39:00 134 mm[Hg] [facility] Diastolic blood pressure 2022-10-25 18:39:00 85 mm[Hg] [facility] Heart rate 2022-10-25 18:39:00 84 /min [facility] temperature 2022-10-25 18:39:00 36.11 Ivonne [facility] Respiratory rate 2022-10-25 18:39:00 18 /min [facility] Body height 2022-10-25 18:39:00 160 cm [facility] Body weight 2022-10-25 18:39:00 79.946 kg [facility] BMI 2022-10-25 18:39:00 31.22 kg/m2 [facility] Systolic blood pressure 2022-07-20 19:16:00 114 mm[Hg] [facility] Diastolic blood pressure 2022-07-20 19:16:00 77 mm[Hg] [facility] Heart rate 2022-07-20 19:16:00 89 /min Unive [facility] Body temperature 2022-07-20 19:16:00 36.17 Ivonne [facility] Respiratory rate 2022-07-20 19:16:00 18 /min [facility] Body height 2022-07-20 19:16:00 160 [facility] weight 2022-07-20 19:16:00 78.2 kg [facility] BMI 2022-07-20 19:16:00 30.54 kg/m2 [facility] Systolic blood pressure 2022-04-19 21:58:00 123 mm[Hg] [place] [facility] Diastolic blood pressure 2022-04-19 21:58:00 65 mm[Hg] [facility] Heart rate 2022-04-19 21:58:00 80 /min [facility] Body temperature 2022-04-19 21:58:00 36.78 Ivonne [facility] Respiratory rate 2022-04-19 21:58:00 18 /min [facility] Body height 2022-04-19 21:58:00 160 cm [facility] Body weight 2022-04-19 21:58:00 78.529 kg [facility] BMI 2022-04-19 21:58:00 30.67 kg/m2 [facility] Procedures Procedure Date / Time Performed Performing Clinicia n Source FLU VACC ([id number]), 6+ MONTHS, IM, TIV (AFLURIA/FLUARIX/FLULA KIMBERLEE/FLUZONE) 2024-03-08 18:47:46 Lizbeth Valerio [facility] POCT TEST 2024-03-08 18:37:00 Brant Maynard [facility] POCT URINALYSIS W/O SPECIFIC GRAVITY 2024-03-08 18:36:00 Brant Maynard [facility] POCT TEST 2024-02-23 18:45:00 Brant Maynard [facility] POCT URINALYSIS W/O SPECIFIC GRAVITY 2022-10-25 18:41:00 Fabiana Tran [facility] POCT TEST 2022-07-20 19:19:00 Ildefonso Valerio [facility] POCT TEST 2022-04-19 22:25:00 Ildefonso Valerio [facility] Encounters Start Date/Time End Date/Time Encounter Type Admission Type Attending [facility] Care Department Encounter ID Source 2024-03-12 00:00:00 2024-04-13 18:21:40 Patient Secure Msg Brant Maynard [place] [employer] [facility] [id number] 350.1.13.10 [id number] [id number] [facility] 2024-04-05 13:45:00 2024-04-05 13:45:00 Outpatient R [facility] [id number] [facility] 2024-03-08 13:15:00 2024-03-08 14:00:44 Outpatient R CAESAR BRANT [facility] [id number] [facility] 2024-03-08 13:15:00 2024-03-08 14:00:44 Office Visit Brant Maynard [place] [employer] [facility]ILD [place] [id number] 350.1.13.10 [id number] [id number] [facility] 2024-02-26 00:00:00 2024-02-26 10:50:31 Patient Secure Msg Caesar [facility] [place] [employer]END[employer] [facility] CHILD [place] [id number] 350.1.13.10 4.2.7.2.686 [id number] [facility] 2024-02-26 00:00:00 2024-02-26 10:42:55 Telephone Caesar Brant [place] [employer] [facility]ILD [place] [id number] 350.1.13.10 4.2.7.2.686 [id number] [facility] 2024-02-23 13:00:00 2024-02-23 14:12:42 Outpatient R CAESAR BRANT [facility] [id number] [facility] 2024-02-23 13:00:00 2024-02-23 14:12:42 Office Visit Caesar [facility] [place] [employer] [facility] & CHILD [place] [id number] 350.1.13.10 [id number] [id number] [facility] 2023-02-02 15:00:00 2023-02-02 15:00:00 Outpatient R LIZBETH VALERIO [facility] [id number] [facility] 2023-01-23 13:00:00 2023-01-23 13:00:00 Outpatient R LIZBETH VALERIO [facility] [id number] [facility] 2022-10-31 00:00:00 2022-10-31 00:00:00 Case Management Fabiana Tran [place] [employer] [facility] & CHILD [place] 1..840.114 350.1.13.10 4.2.7.2.686 [id number] [facility] 2022-10-31 00:00:00 2022-10-31 00:00:00 Patient Secure Msg Fabiana Tran [place] [employer] [facility]ILD [place] 1..840.114 350.1.13.10 4.2.7.2.686 [id number] [facility] 2022-10-25 13:30:00 2022-10-25 14:01:13 Outpatient R FABIANA TRAN [facility] [id number] [facility] 2022-10-25 13:30:00 2022-10-25 14:01:13 Office Visit Fabiana [facility]an [facility] [facility] 1..840.114 350.1.13.10 4.2.7.2.686 [id number] [facility] 2022-07-20 13:45:00 2022-07-20 13:49:42 Outpatient R LIZBETH VALERIO [facility] [id number] [facility] 2022-07-20 13:45:00 2022-07-20 13:49:42 Office Visit Lizbeth [facility]erio [facility] [place] [facility] 1.840.114 350.1.13.10 4.2.7.2.686 [id number] [facility] 2022-07-20 13:45:00 2022-07-20 13:45:00 Outpatient R KAVYAJEREMIAHDINORALIZBETH [facility] [id number] [facility] 2022-04-21 00:00:00 2022-04-21 00:00:00 Telephone Lizbeth Valerio [place] [employer] [facility] [place] 1..840.114 350.1.13.10 4.2.7.2.686 [id number] [facility] 2022-04-19 15:45:00 2022-04-19 16:55:41 Outpatient R LIZBETH VALERIO [facility] [id number] [facility] 2022-04-19 15:45:00 2022-04-19 16:55:41 Office Visit Lizbeth Valerio [place] [employer] [facility] [place] 1..840.114 350.1.13.10 4.2.7.2.686 [id number] [facility] 2022-02-16 08:30:00 2022-02-16 08:30:00 Outpatient R FELICITA WILLIAM [facility] [id number] [facility] 2022-02-16 08:30:00 2022-02-16 08:30:00 Outpatient R FELICITA [facility] [facility] [id number] [facility] 2022-02-02 00:00:00 2022-02-02 00:00:00 Telephone Felicita William [place] [employer] [facility] 1..840.114 350.1.13.10 4.2.7.2.686 [id number] [facility] 2022-02-01 08:30:00 2022-02-01 09:23:48 Office Visit Felicita William Damilola C [place] [employer]END[employer] [facility] 1.84.114 350.1.13.10 4.2.7.2.686 [id number] [facility] 2022-02-01 08:30:00 2022-02-01 09:23:48 Outpatient R LIZBETH VALERIO [facility] [id number] [facility] 2022-02-01 08:30:00 2022-02-01 08:30:00 Outpatient R LIZBETH VALERIO [facility] [id number] [facility] 2022-02-01 00:00:00 2022-02-01 00:00:00 Orders Only Doctor Unassigned, [place] [facility] 1.84.114 350.1.13.10 4.2.7.2.686 [id number] [facility] 2022-01-20 09:00:00 2022-01-20 09:00:00 Outpatient R FELICITA WILLIAM [facility] [id number] [facility] 2021-08-09 13:00:00 2021-08-09 13:00:00 Outpatient R BEATRICE PAULINO [facility] [id number] [facility] 2021-03-15 00:00:00 2021-03-15 00:00:00 Nurse Triage Dorene Mariscal [facility] 1..114 350.1.13.10 4.2.7.2.686 [id number] [facility] 2021-03-01 00:00:00 2021-03-01 00:00:00 Telephone Beatrice Paulino [place] [employer]END[employer] [facility] 1.840.114 350.1.13.10 4.2.7.2.686 [id number] [facility] 2021-02-25 15:40:41 2021-02-25 16:19:04 Office Visit Beatrice Paulino [place] [employer] [facility] 1.2.840.114 350.1.13.10 4.2.7.2.686 [id number] [facility] 2021-02-25 15:15:00 2021-02-25 15:15:00 Outpatient R BEATRICE PAULINO [facility] [id number] [facility] 2021-02-22 08:30:00 2021-02-22 08:30:00 Outpatient R LIZBETH VALERIO [facility] [id number] [facility] 2020-08-10 00:00:00 2020-08-10 00:00:00 Telephone Lizbeth Valerio [place] [employer]END[employer] [facility] 1..840.114 350.1.13.10 4.2.7.2.686 [id number] [facility] 2020-08-10 00:00:00 2020-08-10 00:00:00 Telephone Lizbeth Valerio [place] [employer]END[employer] [facility] 1.2.840.114 350.1.13.10 4.2.7.2.686 [id number] [facility] 2020-08-07 09:57:45 2020-08-07 11:12:45 Office Visit Lizbeth Valerio [place] [employer]END[employer] [facility] 1.2.840.114 350.1.13.10 4.2.7.2.686 [id number] [facility] 2020-08-07 09:45:00 2020-08-07 09:45:00 Outpatient R LIZBETH VALERIO [facility] [id number] [facility] 2020-08-07 00:00:00 2020-08-07 00:00:00 Orders Only Doctor Unassigned, [place] [facility] 1.2.84.114 350.1.13.10 4.2.7.2.686 [id number] [facility] 2020-02-26 00:00:00 2020-02-26 00:00:00 Patient Secure Msg Doctor Unassigned, [place] [facility] 1.2840.114 350.1.13.10 4.2.7.2.686 [id number] [facility] 2019-12-19 00:00:00 2019-12-19 00:00:00 Refill Lizbeth Valerio [place] [employer] [facility] 1.840.114 350.1.13.10 4.2.7.2.686 [id number] [facility] 2019-08-22 14:18:07 2019-08-22 14:33:07 Office Visit Beatrice Paulino [place] [employer] [facility] 1.84.114 350.1.13.10 4.2.7.2.686 [id number] [facility] 2019-08-22 13:45:00 2019-08-22 13:45:00 Outpatient R BEATRICE PAULINO [facility] [id number] [facility] 2019-08-02 13:33:54 2019-08-02 14:00:27 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, [facility] Lizbeth Valerio [place] [employer] [facility] 1.84.114 350.1.13.10 4.2.7.2.686 [id number] [facility] 2019-08-01 15:00:00 2019-08-01 16:43:49 Outpatient R LIZBETH VALERIO [facility] [id number] [facility] 2019-08-01 15:43:28 2019-08-01 15:58:28 Office Visit Lizbeth Valerio [place] ATTENDANT [facility] 1.84114 350.1.13.10 4.2.7.2.686 [id number] [facility] 2019-08-01 00:00:00 2019-08-01 00:00:00 Orders Only Doctor Unassigned, [place] [facility] 1.840.114 350.1.13.10 4.2.7.2.686 [id number] [facility] Results Test Description Test Time Test Comments Results Result [facility] Specific [id number] 18:36:00* Test Item Value Reference Range Interpretation Comme nts POCT PH U (test code = 3254) 6 mg/dl 5-8 POCT U LEUK EST (test code = 3263) 1+ Negative - Negative POCT U NIT (test code = 3262) Neg Negative - Negati ve POCT U PROT (test code = 3259) Trace Negative - Negat mau POCT U GLU (test code = 3256) Nml Negative - Negati ve POCT U KETONE (test code = 3258) None Negative - Neg ative POCT U BLD (test code = 3257) Trace Negative - Negati ve [facility] [id number] 18:45:00* Test Item Value Reference Range Interpretation Comme nts POCT PREG (test code = 1605) Negative On board controls acceptable with C Line (test code = 3574) Yes POCT PREG LOT # (test code = 3575) POCT PREG TEST DATE ( test code = 3576) [facility] URINALYSIS W/O SPECIFIC [id number] 18:41:00* Test Item Value Reference Range Interpretation Comme nts POCT PH U (test code = 3254) . 5-8 POCT U LEUK EST (test code = 3263) . Negative - N egative POCT U NIT (test code = 3262) . Negative - Negati ve POCT U PROT (test code = 3259) . Negative - Negat mau POCT U GLU (test code = 3256) . Negative - Negati ve POCT U KETONE (test code = 3258) . Negative - Neg ative POCT U BLD (test code = 3257) .. Negative - Negati ve [facility] URINALYSIS W/O SPECIFIC [id number] 18:41:00* Test Item Value Reference Range Interpretation Comme nts POCT PH U (test code = 3254) . 5-8 POCT U LEUK EST (test code = 3263) . Negative - N egative POCT U NIT (test code = 3262) . Negative - Negati ve POCT U PROT (test code = 3259) . Negative - Negat mau POCT U GLU (test code = 3256) . Negative - Negati ve POCT U KETONE (test code = 3258) . Negative - Neg ative POCT U BLD (test code = 3257) .. Negative - Negati ve [facility] [id number] 19:19:00* Test Item Value Reference Range Interpretation Comme nts POCT PREG (test code = 1605) Negative On board controls acceptable with C Line (test code = 3574) Yes POCT PREG LOT # (test code = 3575) POCT PREG TEST DATE ( test code = 3576) [facility] [id number] 19:19:00* Test Item Value Reference Range Interpretation Comme nts POCT PREG (test code = 1605) Negative On board controls acceptable with C Line (test code = 3574) Yes POCT PREG LOT # (test code = 3575) POCT PREG TEST DATE ( test code = 3576) [facility] [id number] 19:19:00* Test Item Value Reference Range Interpretation Comme nts POCT PREG (test code = 1605) Negative On board controls acceptable with C Line (test code = 3574) Yes POCT PREG LOT # (test code = 3575) POCT PREG TEST DATE ( test code = 3576) [facility] [id number] 19:19:00* Test Item Value Reference Range Interpretation Comme nts POCT PREG (test code = 1605) Negative On board controls acceptable with C Line (test code = 3574) Yes POCT PREG LOT # (test code = 3575) POCT PREG TEST DATE ( test code = 3576) [facility] [id number] 22:25:00* Test Item Value Reference Range Interpretation Comme nts POCT PREG (test code = 1605) Negative On board controls acceptable with C Line (test code = 3574) Yes POCT PREG LOT # (test code = 3575) POCT PREG TEST DATE ( test code = 3576) [facility] [id number] 22:25:00* Test Item Value Reference Range Interpretation Comme nts POCT PREG (test code = 1605) Negative On board controls acceptable with C Line (test code = 3574) Yes POCT PREG LOT # (test code = 3575) POCT PREG TEST DATE ( test code = 3576) [facility]
[2024-05-18] MEDS ORDERED: LIDOCAINE 1% 20 ML MDV ONE (13:33)
[2024-05-18] MEDS ORDERED: HYDROCODONE/APAP 7.5/325 MG TAB ONE (13:34)
[2024-05-18] MEDS ORDERED: BUPIVACAINE 0.5% PF 10 ML VIAL ONE (13:34)
--- NOTE | 2024-05-18 15:36 | RAD REPORT ---
EXAMINATION: Finger-Thumb Right CLINICAL INDICATION: Female, 24 years old. injury;Pain COMPARISON: No prior exam. FINDINGS: No acute fracture. No malalignment/dislocation. No significant focal degenerative change. Other: n/a IMPRESSION: No right thumb fracture.
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
[2024-05-18 17:38] VITALS: TEMP 97.8
[2024-05-18 17:40] VITALS: BP 101/64; O2SAT 98
== END 2024-05-18 17:03 | disposition home or self-care (01) ==
LOC: ER 12:58
DX: S61.101A Unspecified open wound of right thumb with damage to nail, initial encounter (principal)
CPT/HCPCS: 99284; J2003

== ENCOUNTER 2024-09-24 10:07 | Emergency (ER) | payer OTHER, SELFPAY ==
--- OUTSIDE RECORDS SUMMARY | 2024-09-24 10:12 | XMS REPORT | Continuity of Care Document ---
Author Name Unknown Address [address] [place] [address] [facility] [place] Address 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 Name Role Phone Pcp, Patient Does Not Have A Primary Care Physic jay BRANT MAYNARD Attending Clinician Unavailable Brant Landeros Attending Clinician [phone] LIZBETH VALERIO Attending Clinician Unavail Fabiana Momin CNM Attending Clinician [phone] FABIANA TRAN Attending Clinician UnavailLibzeth Brown Attending Clinician + FELICITA WILLIAM Attending Clinician UnavailFelicita Islas Attending Clinician + [phone] Doctor Unassigned, [place] Attending Clinician BEATRICE Porras Attending Clinician Unavailrohan Mariscal RN, Dorene Estevez Attending Clinician UnavailBeatrice Espino Attending Clinician [phone] [facility] Unavailable Payers Payer Name Policy Type Policy Number Effective Date Expirati on Date Source [facility] [id number] 2019 00:00:00 Problems Condition Name Condition Details Condition Category [...] whether serious comorbidit y present Disease Active 8- 00:00: 00 [facility] BMI 31.0-31.9, adult BMI 31.0-31.9, adult Disease Resolve d 8- 00:00: 00 2024-02-23 00:00:00 2024-02-23 14:10:19 [facility] Class 1 obesity due to excess calories with body mass index (BMI) of 31.0 to 31.9 in adult, unspecifie d whether serious comorbidit y present Class 1 obesity due to excess calories with body mass index (BMI) of 31.0 to 31.9 in adult, unspecifie d whether serious comorbidit y present Disease Resolve d 8- 00:00: 00 2022-10-25 00:00:00 2022-10-25 19:47:39 [facility] Dysuria Dysuria Disease Resolve d 9- 00:00: 00 2022-10-25 00:00:00 2022-10-25 19:47:34 [facility] Over weight Over weight Disease Resolve d 2-26 00:00: 00 2022-10-25 00:00:00 2022-10-25 19:47:30 [facility] Screening examinatio n for STD (sexually transmitte d disease) Screening examinatio n for STD (sexually transmitte d disease) Disease Resolve d 2016-06 00:00: 00 2022-10-25 00:00:00 2022-10-25 19:47:32 [facility] Vaginal discharge Vaginal discharge Disease Resolve d 0 2-26 00:00: 00 2021-02-25 00:00:00 2021-02-25 16:30:03 [facility] Dysmenorrh ea Dysmenorrh ea Disease Resolve d 0 3-12 00:00: 00 2021-02-25 00:00:00 2021-02-25 15:42:23 [facility] care and examinatio n of lactating mother care and examinatio n of lactating mother Disease Resolve d 2016-06 018 00:00: 00 2017-04-14 00:00:00 2017-04-14 15:54:11 [facility] (spontaneo us vaginal delivery) (spontaneo us vaginal delivery) Disease Resolve d 03-05 00:00: 00 2017-04-14 00:00:00 2017-04-14 15:54:17 [facility] Liveborn infant by vaginal delivery Liveborn infant by vaginal delivery Disease Resolve d 03-05 00:00: 00 2017-04-14 00:00:00 2017-04-14 15:54:14 [facility] 39 weeks gestation of 39 weeks gestation of Disease Resolve d 03-03 00:00: 00 2017-04-14 00:00:00 2017-04-14 15:54:13 [facility] Supervisio n of high risk , antepartum , third trimester Supervisio n of high risk , antepartum , third trimester Disease Resolve d 01-03 00:00: 00 2017-04-14 00:00:00 2017-04-14 15:54:16 [facility] Multiparit y Multiparit y Disease Resolve d 10-05 00:00: 00 2017-04-14 00:00:00 2017-04-14 15:54:15 [facility] Unspecifie d hemorrhage in early , antepartum Unspecifie d hemorrhage in early , antepartum Disease Resolve d 01-03 00:00: 00 2017-03-06 00:00:00 2017-03-06 04:11:21 [facility] Missed menses Missed menses Disease Resolve d 10-05 00:00: 00 2017-03-04 00:00:00 2017-03-04 10:06:07 [facility] Supervisio n of high-risk of elderly multigravi da, third trimester Supervisio n of high-risk of elderly multigravi da, third trimester Disease Resolve d 12-20 00:00: 00 2017-01-03 00:00:00 2017-01-03 15:54:55 [facility] Supervisio n of high risk , antepartum , second trimester Supervisio n of high risk , antepartum , second trimester Disease Resolve d 10-05 00:00: 00 2016-12-20 00:00:00 2016-12-20 15:01:20 [facility] Allergies, Adverse Reactions, Alerts Allergy Name Allergy Type Status Severity Reaction(s) Onset Date Inactive Date Treating Clinician Comments Source NO KNOWN ALLERGIE S Drug Class Active [facility] Social History Social Habit Start Date Stop Date Quantity Comments Source History SDOH Alcohol Frequency [facility] History SDOH Alcohol Std Drinks [facility] History SDOH Alcohol Binge [facility] Alcoholic beverage intake 2024-06-17 00:00:00 2024-06-17 00:00:00 Current drinker of alcohol (finding) [facility] History of Social function 2024-02-23 00:00:00 2024-02-23 00:00:00 [facility] Exposure to SARS-CoV-2 (event) 2022-10-15 00:00:00 2022-10-25 13:30:00 Not sure [facility] Tobacco use and exposure 2022-02-01 00:00:00 2022-02-01 00:00:00 Smokeless tobacco non-user [facility] Alcohol Comment 2022-02-01 00:00:00 2022-02-01 00:00:00 socially [facility] Alcohol intake 2019-08-22 00:00:00 2019-08-22 00:00:00 Current non-drinker of alcohol (finding) [facility] Sex assigned at 2000 00:00:00 2000 00:00:00 [facility] Smoking Status Start Date Stop Date Source Never smoked tobacco [facility] Medications Ordered Medication Name Filled Medication Name Start Date Stop Date Current Medication? Ordering Clinician Indication Dosage Frequency Signature (SIG) Comments Components Source Nitrofurant oin&Nit. Macrocryst (MACROBID) 100 mg capsule - 00:00: 00 Yes [id number] 100mg Take 1 capsule by mouth in the morning and 1 capsule in the evening. [facility] phenazopyri dine (PYRIDIUM) 200 mg tablet - 00:00: 00 Yes [id number] 200mg Take 1 tablet by mouth 3 (three) times daily as needed for Pain. [facility] levonorgest rel-ethinyl estradiol (SRONYX) 0.1-20 mg-mcg per tablet 03-08 00:00: 00 Yes [id number] 1{tbl} Take 1 tablet by mouth in the morning. [facility] doxycycline hyclate 100 mg capsule -16 00:00: 00 03-05 04:59 :00 No [id number] 100mg Take 1 capsule by mouth every 12 (twelve) hours for 7 days. [facility] metroNIDAZO LE 500 mg tablet 02-22 00:00: 00 06-17 00:00 :00 No [id number] 500mg Take 1 tablet by mouth every 12 (twelve) hours. [facility] Nitrofurant oin&Nit. Macrocryst (MACROBID) 100 mg capsule - 00:00: 00 11-11 04:59 :00 No [id number] 100mg Take 1 capsule by mouth in the morning and 1 capsule in the evening. Do all this for 10 days. [facility] levonorgest rel-ethinyl estradiol (SRONYX) 0.1-20 mg-mcg per tablet 2-08 00:00: 00 03-08 00:00 :00 No [id number] 1{tbl} Take 1 tablet by mouth in the morning. [facility] metroNIDAZO LE 500 mg tablet 2021-06 1- 00:00: 00 10-25 00:00 :00 No [id number] 500mg Take 1 tablet by mouth in the morning and 1 tablet in the evening. [facility] levonorgest rel-ethinyl estradiol (SRONYX) 0.1-20 mg-mcg per tablet 2021-06 00:00: 00 07-20 00:00 :00 No [id number] 1{tbl} Take 1 tablet by mouth in the morning. [facility] azithromyci n 500 mg tablet 02-02 00:00: 00 02-04 04:59 :00 No [id number] 1000mg Take 2 tablets by mouth in the morning for 1 day. [facility] norethindro ne-e.estrad ioL-iron (MICROGESTI N FE) 1.5 mg-30 mcg (21)/75 mg (7) per tablet 02-25 00:00: 00 10-25 00:00 :00 No [id number] Take 1 tablet daily. Take 3 packages of pills continuous ly, skipping placebo pills. [facility] Immunizations Ordered Immunization Name Filled Immunization Name Date Status Comments Source Influenza, split virus, trivalent, PF (AFLURIA/FLUARIX/FLU LAVAL/FLUZONE) 2024-03-08 00:00:00 Completed Influenza, split virus, trivalent, PF (AFLURIA/FLUARIX/FLU LAVAL/FLUZONE) 2024-03-08 00:00:00 Completed TDAP 2016-12-20 00:00:00 Completed [facility] TDAP 2016-12-20 00:00:00 Completed [facility] TDAP 2016-12-20 00:00:00 Completed [facility] TDAP 2016-12-20 00:00:00 Completed [facility] TDAP 2016-12-20 00:00:00 Completed [facility] TDAP 2016-12-20 00:00:00 Completed [facility] TDAP 2016-12-20 00:00:00 Completed [facility] TDAP 2016-12-20 00:00:00 Completed [facility] HPV 2013-02-12 00:00:00 Completed [facility] HPV 2013-02-12 00:00:00 Completed [facility] HPV 2013-02-12 00:00:00 Completed [facility] HPV 2013-02-12 00:00:00 Completed [facility] HPV 2013-02-12 00:00:00 Completed [facility] HPV 2013-02-12 00:00:00 Completed [facility] HPV 2013-02-12 00:00:00 Completed HPV 2013-02-12 00:00:00 Completed HPV 2012-10-12 00:00:00 Completed [facility] HPV 2012-10-12 00:00:00 Completed [facility] HPV 2012-10-12 00:00:00 Completed [facility] HPV 2012-10-12 00:00:00 Completed [facility] HPV 2012-10-12 00:00:00 Completed [facility] HPV 2012-10-12 00:00:00 Completed [facility] HPV 2012-10-12 00:00:00 Completed [facility] HPV 2012-10-12 00:00:00 Completed [facility] Meningococcal Polysaccharide (groups A, C, Y and W-135) conjugate vaccine (MCV4P) 2011-01-28 00:00:00 Completed [facility] Varicella (varivax)(chicken pox) 2011-01-28 00:00:00 Completed [facility] Meningococcal Polysaccharide (groups A, C, Y and W-135) conjugate vaccine (MCV4P) 2011-01-28 00:00:00 Completed [facility] Varicella (varivax)(chicken pox) 2011-01-28 00:00:00 Completed [facility] Meningococcal Polysaccharide (groups A, C, Y and W-135) conjugate vaccine (MCV4P) 2011-01-28 00:00:00 Completed [facility] Varicella (varivax)(chicken pox) 2011-01-28 00:00:00 Completed [facility] Meningococcal Polysaccharide (groups A, C, Y and W-135) conjugate vaccine (MCV4P) 2011-01-28 00:00:00 Completed [facility] Varicella (varivax)(chicken pox) 2011-01-28 00:00:00 Completed [facility] Meningococcal Polysaccharide (groups A, C, Y and W-135) conjugate vaccine (MCV4P) 2011-01-28 00:00:00 Completed [facility] Varicella (varivax)(chicken pox) 2011-01-28 00:00:00 Completed [facility] Meningococcal Polysaccharide (groups A, C, Y and W-135) conjugate vaccine (MCV4P) 2011-01-28 00:00:00 Completed [facility] Varicella (varivax)(chicken pox) 2011-01-28 00:00:00 Completed [facility] Meningococcal Polysaccharide (groups A, C, Y and W-135) conjugate vaccine (MCV4P) 2011-01-28 00:00:00 Completed Varicella (varivax)(chicken pox) 2011-01-28 00:00:00 Completed Meningococcal Polysaccharide (groups A, C, Y and W-135) conjugate vaccine (MCV4P) 2011-01-28 00:00:00 Completed Varicella (varivax)(chicken pox) 2011-01-28 00:00:00 Completed HEPATITIS A 2004-06-24 00:00:00 Completed [facility] HEPATITIS A 2004-06-24 00:00:00 Completed [facility] HEPATITIS A 2004-06-24 00:00:00 Completed [facility] HEPATITIS A 2004-06-24 00:00:00 Completed [facility] HEPATITIS A 2004-06-24 00:00:00 Completed [facility] HEPATITIS A 2004-06-24 00:00:00 Completed [facility] HEPATITIS A 2004-06-24 00:00:00 Completed HEPATITIS A 2004-06-24 00:00:00 Completed HEPATITIS A 2004-01-20 00:00:00 Completed [facility] MMR 2004-01-20 00:00:00 Completed [facility] HEPATITIS A 2004-01-20 00:00:00 Completed [facility] MMR 2004-01-20 00:00:00 Completed [facility] HEPATITIS A 2004-01-20 00:00:00 Completed [facility] MMR 2004-01-20 00:00:00 Completed [facility] HEPATITIS A 2004-01-20 00:00:00 Completed [facility] MMR 2004-01-20 00:00:00 Completed [facility] HEPATITIS A 2004-01-20 00:00:00 Completed [facility] MMR 2004-01-20 00:00:00 Completed [facility] HEPATITIS A 2004-01-20 00:00:00 Completed [facility] MMR 2004-01-20 00:00:00 Completed [facility] HEPATITIS A 2004-01-20 00:00:00 Completed [facility] MMR 2004-01-20 00:00:00 Completed HEPATITIS A 2004-01-20 00:00:00 Completed [facility] MMR 2004-01-20 00:00:00 Completed Varicella (varivax)(chicken pox) 2000-05-15 00:00:00 Completed [facility] Varicella (varivax)(chicken pox) 2000-05-15 00:00:00 Completed [facility] Varicella (varivax)(chicken pox) 2000-05-15 00:00:00 Completed [facility] Varicella (varivax)(chicken pox) 2000-05-15 00:00:00 Completed [facility] Varicella (varivax)(chicken pox) 2000-05-15 00:00:00 Completed [facility] Varicella (varivax)(chicken pox) 2000-05-15 00:00:00 Completed [facility] Varicella (varivax)(chicken pox) 2000-05-15 00:00:00 Completed Varicella (varivax)(chicken pox) 2000-05-15 00:00:00 Completed MMR 1999-08-31 00:00:00 Completed [facility] MMR 1999-08-31 00:00:00 Completed [facility] MMR 1999-08-31 00:00:00 Completed [facility] MMR 1999-08-31 00:00:00 Completed [facility] MMR 1999-08-31 00:00:00 Completed [facility] MMR 1999-08-31 00:00:00 Completed [facility] MMR 1999-08-31 00:00:00 Completed MMR 1999-08-31 00:00:00 Completed TDAP Unknown Completed [facility] HPV Unknown Completed [facility] HEPATITIS A Unknown Completed [facility] Meningococcal Polysaccharide (groups A, C, Y and W-135) conjugate vaccine (MCV4P) Unknown Completed [facility] MMR Unknown Completed [facility] Varicella (varivax)(chicken pox) Unknown Completed [facility] TDAP Unknown Completed [facility] HPV Unknown Completed [facility] HEPATITIS A Unknown Completed [facility] Meningococcal Polysaccharide (groups A, C, Y and W-135) conjugate vaccine (MCV4P) Unknown Completed [facility] MMR Unknown Completed [facility] Varicella (varivax)(chicken pox) Unknown Completed [facility] TDAP Unknown Completed [facility] HPV Unknown Completed [facility] HEPATITIS A Unknown Completed [facility] Meningococcal Polysaccharide (groups A, C, Y and W-135) conjugate vaccine (MCV4P) Unknown Completed [facility] MMR Unknown Completed [facility] Varicella (varivax)(chicken pox) Unknown Completed [facility] TDAP Unknown Completed [facility] HPV Unknown Completed [facility] HEPATITIS A Unknown Completed [facility] Meningococcal Polysaccharide (groups A, C, Y and W-135) conjugate vaccine (MCV4P) Unknown Completed [facility] MMR Unknown Completed [facility] Varicella (varivax)(chicken pox) Unknown Completed [facility] TDAP Unknown Completed [facility] HPV Unknown Completed [facility] HEPATITIS A Unknown Completed [facility] Meningococcal Polysaccharide (groups A, C, Y and W-135) conjugate vaccine (MCV4P) Unknown Completed [facility] MMR Unknown Completed [facility] Varicella (varivax)(chicken pox) Unknown Completed [facility] Vital Signs Vital Name Observation Time Observation Value Comments S ource Systolic blood pressure 2024-06-14 19:03:00 126 mm[Hg] [facility] Diastolic blood pressure 2024-06-14 19:03:00 80 mm[Hg] [facility] Heart rate 2024-06-14 19:03:00 85 /min Israele [facility] Body temperature 2024-06-14 19:03:00 36.67 Ivonne [facility] Respiratory rate 2024-06-14 19:03:00 15 /min [facility] Body height 2024-06-14 19:03:00 160 cm [facility] Body weight 2024-06-14 19:03:00 79.47 kg [facility] BMI 2024-06-14 19:03:00 31.04 kg/m2 [facility] Systolic blood pressure 2024-03-08 18:31:00 105 mm[Hg] [facility] Diastolic blood pressure 2024-03-08 18:31:00 72 mm[Hg] [facility] Heart rate 2024-03-08 18:31:00 80 /min Unive [facility] Body temperature 2024-03-08 18:31:00 36.78 Ivonne [facility] Respiratory rate 2024-03-08 18:31:00 18 /min [facility] Body height 2024-03-08 18:31:00 160 cm [facility] Body weight 2024-03-08 18:31:00 78.217 kg [facility] BMI 2024-03-08 18:31:00 30.55 kg/m2 [facility] Systolic blood pressure 2024-02-23 18:16:00 116 mm[Hg] [facility] Diastolic blood pressure 2024-02-23 18:16:00 69 mm[Hg] [facility] Heart rate 2024-02-23 18:16:00 81 /min [facility] Body temperature 2024-02-23 18:16:00 36.61 Ivonne [facility] Respiratory rate 2024-02-23 18:16:00 18 /min [facility] Body height 2024-02-23 18:16:00 160 cm [facility] Body weight 2024-02-23 18:16:00 78.217 kg [facility] BMI 2024-02-23 18:16:00 30.55 kg/m2 [facility] Systolic blood pressure 2022-10-25 18:39:00 134 mm[Hg] [facility] Diastolic blood pressure 2022-10-25 18:39:00 85 mm[Hg] [facility] Heart rate 2022-10-25 18:39:00 84 /min Unive [facility] Body temperature 2022-10-25 18:39:00 36.11 Ivonne [facility] Respiratory rate 2022-10-25 18:39:00 18 /min [facility] Body height 2022-10-25 18:39:00 160 cm [facility] Body weight 2022-10-25 18:39:00 79.946 kg [facility] BMI 2022-10-25 18:39:00 31.22 kg/m2 [facility] Systolic blood pressure 2022-07-20 19:16:00 114 mm[Hg] [facility] Diastolic blood pressure 2022-07-20 19:16:00 77 mm[Hg] [facility] Heart rate 2022-07-20 19:16:00 89 /min Unive [facility] Body temperature 2022-07-20 19:16:00 36.17 Ivonne [facility] Respiratory rate 2022-07-20 19:16:00 18 /min [facility] Body height 2022-07-20 19:16:00 160 cm [facility] Body weight 2022-07-20 19:16:00 78.2 kg [facility] BMI 2022-07-20 19:16:00 30.54 kg/m2 [facility] Systolic blood pressure 2022-04-19 21:58:00 123 mm[Hg] [facility] Diastolic blood pressure 2022-04-19 21:58:00 65 mm[Hg] [facility] Heart rate 2022-04-19 21:58:00 80 /min Unive [facility] Body temperature 2022-04-19 21:58:00 36.78 Ivonne [facility] Respiratory rate 2022-04-19 21:58:00 18 /min [facility] Body height 2022-04-19 21:58:00 160 cm [facility] Body weight 2022-04-19 21:58:00 78.529 kg [facility] BMI 2022-04-19 21:58:00 30.67 kg/m2 [facility] Procedures Procedure Date / Time Performed Performing Clinicia n Source URINE CULTURE 2024-06-14 19:23:00 Brant Maynard [facility] POCT URINALYSIS W/O SPECIFIC GRAVITY 2024-06-14 19:04:00 Brant Maynard [facility] FLU VACC ([id number]), 6+ MONTHS, IM, TIV (AFLURIA/FLUARIX/FLULA KIMBERLEE/FLUZONE) 2024-03-08 18:47:46 Lizbeth Valerio [facility] POCT TEST 2024-03-08 18:37:00 Brant Maynard [facility] POCT URINALYSIS W/O SPECIFIC GRAVITY 2024-03-08 18:36:00 Brant Maynard [facility] POCT TEST 2024-02-23 18:45:00 Brant Maynard [facility] POCT URINALYSIS W/O SPECIFIC GRAVITY 2022-10-25 18:41:00 Fabiana Tran [facility] POCT TEST 2022-07-20 19:19:00 Ildefonso Valerio [facility] POCT TEST 2022-04-19 22:25:00 Ildefonso Valerio [facility] Encounters Start Date/Time End Date/Time Encounter Type Admission Type Attending [facility] Care Facility Care Department Encounter ID Source 2024-06-14 12:45:00 2024-06-14 13:24:15 Outpatient R BRANT MAYNARD [facility] [id number] [facility] 2024-06-14 12:45:00 2024-06-14 13:24:15 Office Visit Brant Maynard [facility] [id number] 107 [id number] [facility] 2024-03-12 00:00:00 2024-04-13 18:21:40 Patient Secure Msg Brant Maynard [facility] [id number] [facility] 2024-04-05 13:45:00 2024-04-05 13:45:00 Outpatient R [facility] [id number] [facility] 2024-03-08 13:15:00 2024-03-08 14:00:44 Outpatient R BRANT MAYNARD [facility] [id number] [facility] 2024-03-08 13:15:00 2024-03-08 14:00:44 Office Visit CaesarBrant [facility] FASHION [facility]LLUSTRATOR [facility] CHILD [facility] [id number] [facility] 2024-02-26 00:00:00 2024-02-26 10:50:31 Patient Secure Msg [facility] FASHION ILLUSTRATOR [facility] CHILD [facility] [id number] [facility] 2024-02-26 00:00:00 2024-02-26 10:42:55 [facility] CHILD [facility] [id number] [facility] 2024-02-23 13:00:00 2024-02-23 14:12:42 Outpatient R CAESARAMERICOBRANT [facility] [id number] [facility] 2024-02-23 13:00:00 2024-02-23 14:12:42 Office Visit CaesarBrant [facility] FASHION [facility]STRATOR [facility] CHILD [facility] [id number] [facility] 2023-02-02 15:00:00 2023-02-02 15:00:00 Outpatient R LIZBETH VALERIO [facility] [id number] [facility] 2023-01-23 13:00:00 2023-01-23 13:00:00 Outpatient R LIZBETH VALERIO [facility] [id number] [facility] 2022-10-31 00:00:00 2022-10-31 00:00:00 Case Management Fabiana Tran [facility]STR[facility] ..840.114 350.1.13.10 4.2.7.2.686 [id number] 107 [id number] [facility] 2022-10-31 00:00:00 2022-10-31 00:00:00 Patient Secure Msg Fabiana Tran [facility] 1..840.114 350.1.13.10 4.2.7.2.686 [id number] 107 [id number] [facility] 2022-10-25 13:30:00 2022-10-25 14:01:13 Outpatient R FABIANA TRAN [facility] [id number] [facility] 2022-10-25 13:30:00 2022-10-25 14:01:13 Office Visit Fabiana Tran [facility] ..840.114 350.1.13.10 4.2.7.2.686 [id number] 107 [id number] [facility] 2022-07-20 13:45:00 2022-07-20 13:49:42 Outpatient R LIZBETH VALERIO [facility] [id number] [facility] 2022-07-20 13:45:00 2022-07-20 13:49:42 Office Visit Lizbeth Valerio [facility] ILLUSTRATOR [facility] ..840.114 350.1.13.10 4.2.7.2.686 [id number] 107 [id number] [facility] 2022-07-20 13:45:00 2022-07-20 13:45:00 Outpatient R SIN LIZBETH [facility] [id number] [facility] 2022-04-21 00:00:00 2022-04-21 00:00:00 Telephone Lizbeth Valerio [facility]STR[facility] 1..840.114 350.1.13.10 4.2.7.2.686 [id number] 107 [id number] [facility] 2022-04-19 15:45:00 2022-04-19 16:55:41 Outpatient R GREGGABYLIZBETH DANIELS [facility] [id number] [facility] 2022-04-19 15:45:00 2022-04-19 16:55:41 Office Visit GreggabyLizbeth daniels [facility] ..840.114 350.1.13.10 4.2.7.2.686 [id number] 107 [id number] [facility] 2022-02-16 08:30:00 2022-02-16 08:30:00 Outpatient R FELICITA WILLIAM [facility] [id number] [facility] 2022-02-16 08:30:00 2022-02-16 08:30:00 Outpatient R FELICITA WILLIAM [facility] [id number] [facility] 2022-02-02 00:00:00 2022-02-02 00:00:00 Telephone WilliamFelicita [facility] ..840.114 350.1.13.10 4.2.7.2.686 [id number] 107 [id number] [facility] 2022-02-01 08:30:00 2022-02-01 09:23:48 Office Visit Felicita William Damilola C [facility]LLUSTRATOR [facility] 1..114 350.1.13.10 4.2.7.2.686 [id number] 107 [id number] [facility] 2022-02-01 08:30:00 2022-02-01 09:23:48 Outpatient LIZBETH MOSLEY [facility] [id number] [facility] 2022-02-01 08:30:00 2022-02-01 08:30:00 Outpatient LIZBETH MOSLEY [facility] [id number] [facility] 2022-02-01 00:00:00 2022-02-01 00:00:00 Orders Only Doctor Unassigned, [place] [facility] 1.114 350.1.13.10 4.2.7.2.686 [id number] [facility] 2022-01-20 09:00:00 2022-01-20 09:00:00 Outpatient R FELICITA WILLIAM [facility] [id number] [facility] 2021-08-09 13:00:00 2021-08-09 13:00:00 Outpatient BEATRICE GOODWIN [facility] [id number] [facility] 2021-03-15 00:00:00 2021-03-15 00:00:00 Nurse Triage Dorene Mariscal [facility] 1.114 350.1.13.10 4.2.7.2.686 [id number] [facility] 2021-03-01 00:00:00 2021-03-01 00:00:00 Telephone Beatrice Paulino [facility]STRATOR [facility] 1..114 350.1.13.10 4.2.7.2.686 [id number] 107 [id number] [facility] 2021-02-25 15:40:41 2021-02-25 16:19:04 Office Visit Beatrice Paulino [facility] ILLUSTRATOR [facility] 1.2.840.114 350.1.13.10 4.2.7.2.686 [id number] 107 [id number] [facility] 2021-02-25 15:15:00 2021-02-25 15:15:00 Outpatient R BEATRICE PAULINO [facility] [id number] [facility] 2021-02-22 08:30:00 2021-02-22 08:30:00 Outpatient R LIZBETH VALERIO [facility] [id number] [facility] 2020-08-10 00:00:00 2020-08-10 00:00:00 Telephone Lizbeth Valerio [facility] F[facility] ILLUSTRATOR [facility] CHILD [facility] 1.2.840.114 350.1.13.10 4.2.7.2.686 [id number] 107 [id number] [facility] 2020-08-10 00:00:00 2020-08-10 00:00:00 Telephone Lizbeth Valerio [facility] ILL[facility]STRATOR [facility] 1.2.840.114 350.1.13.10 4.2.7.2.686 [id number] 107 [id number] [facility] 2020-08-07 09:57:45 2020-08-07 11:12:45 Office Visit Lizbeth Valerio [facility] FASH[facility] ILLUSTRATOR [facility] 1.2.840.114 350.1.13.10 4.2.7.2.686 [id number] 107 [id number] [facility] 2020-08-07 09:45:00 2020-08-07 09:45:00 Outpatient R LIZBETH VALERIO [facility] [id number] [facility] 2020-08-07 00:00:00 2020-08-07 00:00:00 Orders Only Doctor Unassigned, [place] [facility] 1.840.114 350.1.13.10 4.2.7.2.686 [id number] [facility] 2020-02-26 00:00:00 2020-02-26 00:00:00 Patient Secure Msg Doctor Unassigned, [place] [facility] 1.2840.114 350.1.13.10 4.2.7.2.686 [id number] [facility] 2019-12-19 00:00:00 2019-12-19 00:00:00 Refill Lizbeth Valerio [facility] FASH[facility] ILLUSTRATOR [facility] 1..114 350.1.13.10 4.2.7.2.686 [id number] 107 [id number] [facility] 2019-08-22 14:18:07 2019-08-22 14:33:07 Office Visit Beatrice Paulino [facility] FASHION ILLUSTRATOR [facility] CHILD [facility] 1..114 350.1.13.10 4.2.7.2.686 [id number] 107 [id number] [facility] 2019-08-22 13:45:00 2019-08-22 13:45:00 Outpatient R BEATRICE PAULINO [facility] [id number] [facility] 2019-08-02 13:33:54 2019-08-02 14:00:27 Control Board Operator Visit Lab, [facility] Lizbeth Valerio [facility] FASHION ILLUSTRATOR [facility] 1..114 350.1.13.10 4.2.7.2.686 [id number] 107 [id number] [facility] 2019-08-01 15:00:00 2019-08-01 16:43:49 Outpatient R LIZBETH VALERIO [facility] [id number] [facility] 2019-08-01 15:43:28 2019-08-01 15:58:28 Office Visit Lizbeth Valerio [facility] FASHION ILLUSTRATOR [facility] 1.84.114 350.1.13.10 4.2.7.2.686 [id number] 107 [id number] [facility] 2019-08-01 00:00:00 2019-08-01 00:00:00 Orders Only Doctor Unassigned, [place] [facility] 1.840.114 350.1.13.10 4.2.7.2.686 [id number] [facility] Results Test Description Test Time Test Comments Results Result Co mments Source [facility] [id number] 18:37:00* Test Item Value Reference Range Interpretation Comme nts POCT PREG (test code = 1605) Negative On board controls acceptable with C Line (test code = 3574) Yes POCT PREG LOT # (test code = 3575) POCT PREG TEST DATE ( test code = 357) [facility] [id number] 18:36:00* Test Item Value Reference Range Interpretation [...] = 3257) Trace Negative - Negati ve [facility] [id number] 18:45:00* Test Item Value Reference Range Interpretation Comme nts POCT PREG (test code = 1605) Negative On board controls acceptable with C Line (test code = 3574) Yes POCT PREG LOT # (test code = 3575) POCT PREG TEST DATE ( test code = 3576[facility] [id number] 18:41:00* Test Item Value Reference Range Interpretation [...] = 3257) .. Negative - Negati ve [facility] URINALYSIS W/O SPECIFIC [id number] 18:41:00* Test Item Value Reference Range Interpretation [...] = 3257) .. Negative - Negati ve [facility] [id number] 19:19:00* Test Item Value Reference Range Interpretation Comme nts POCT PREG (test code = 1605) Negative On board controls acceptable with C Line (test code = 3574) Yes POCT PREG LOT # (test code = 3575) POCT PREG TEST DATE ( test code = 3576) [facility] [id number] 19:19:00* Test Item Value Reference Range Interpretation Comme nts POCT PREG (test code = 1605) Negative On board controls acceptable with C Line (test code = 3574) Yes POCT PREG LOT # (test code = 3575) POCT PREG TEST DATE ( test code = 3576) [facility] [id number] 19:19:00* Test Item Value Reference Range Interpretation Comme nts POCT PREG (test code = 1605) Negative On board controls acceptable with C Line (test code = 3574) Yes POCT PREG LOT # (test code = 3575) POCT PREG TEST DATE ( test code = 3576) [facility] [id number] 19:19:00* Test Item Value Reference Range Interpretation Comme nts POCT PREG (test code = 1605) Negative On board controls acceptable with C Line (test code = 3574) Yes POCT PREG LOT # (test code = 3575) POCT PREG TEST DATE ( test code = 3576) [facility] [id number] 22:25:00* Test Item Value Reference Range Interpretation Comme nts POCT PREG (test code = 1605) Negative On board controls acceptable with C Line (test code = 3574) Yes POCT PREG LOT # (test code = 3575) POCT PREG TEST DATE ( test code = 3576) [facility] [id number] 22:25:00* Test Item Value Reference Range Interpretation Comme nts POCT PREG (test code = 1605) Negative On board controls acceptable with C Line (test code = 3574) Yes POCT PREG LOT # (test code = 3575) POCT PREG TEST DATE ( test code = 3576) [facility] Notes Date/Time Note Provider Source 2024-02-26 10:35:33 Called patient, notified positive for BV. Educated patient on antibiotics, daily probiotics, and BV prevention measures. Pt verbalized understanding. Notified the patient of her positive STI results Chlamydia. Notified the patient her medication has been sent to her pharmacy on file. Educated patient she should complete the entire course, advised patient to practice safe sex practices and to remain abstinent for at least 1-2 weeks post treatment. Patient desires to have partner treated. Name of partner: Jacek Shearer :12/01/1997 [place] Phone number:[phone] [place], [place] Offered std pamphlet for partner education. Patient declined std pamphlet to be mailed to partner. Advised patient on HIV testing if she has not recently been tested. Advised MARKY appointment in 3 months. Pt verbalized understanding. MARIO Bueno RN 02/26/2024 10:36 AM T [facility] 2024-02-26 10:19:20 Bel Grimaldo is a 23 year old female is returning missed call from the nurse to discuss results. Please callback. Thank you. Eusebia Man [facility] 2024-02-26 08:44:39 Called pt, no answer. Left vm. Mario Bueno RN 02/26/24 8:44 AM T [facility] 2024-02-26 08:16:13 Please make pt aware that she is positive for BV, continue with metronidazole as prescribed. Also positive for chlamydia. Prescription for chlamydia has been sent to pharmacy. Advise to abstain x 2 weeks or until 2 weeks after partner has been treated, whichever is longer. RTC in 3 months for recheck. Needs to inform partner for testing and treatment as well with health dept or may have prescription for doxycycline 100mg PO BID x 7 days, no refills. KERWIN Pugh 02/26/2024 8:25 AM [facility]
[2024-09-24 11:35] LABS: Specific Gravity > 1.030 (1.005-1.030)
[2024-09-24 11:36] LABS: Specific Gravity > 1.030 (1.005-1.030); Sqamous Epithelial 20-50 /HPF (None Seen); Urine Bacteria None Seen /HPF (<20); Urine Bilirubin NEGATIVE (Negative); Urine Blood Negative (Negative); Urine Clarity Extremely Turbid (Clear); Urine Color Yellow (Yellow); Urine Culture Reflex Order NOT NEEDED; Urine Glucose NEGATIVE (Negative); Urine Ketones NEGATIVE (Negative); Urine Microscopic Reflex YN ORDER UMIC; Urine Mucus 2+ /HPF (None Seen); Urine Nitrite NEGATIVE (Negative); Urine Protein TRACE (Negative); Urine RBC <5 /HPF (None Seen); Urine Urobilinogen Normal (Normal); Urine WBC <5 /HPF (<5); Urine WBC Clump Rare /HPF (None Seen); Urine Yeast (Budding) Trace /HPF (None Seen); Urine pH 6.5 (5.0-7.0)
[2024-09-24 11:47] LABS: Absolute Basophils 0.1 K/uL (0-0.5); Absolute Eosinophils 0.3 K/uL (0-0.5); Absolute Lymphocytes (CBC) 2.1 K/uL (0.7-4.9); Absolute Monocytes 0.5 K/uL (0.1-1.3); Absolute Neutrophil 5.6 K/uL (1.8-8.0); Basophils % 0.7 % (0-1.3); Eosinophils % 3.8 % (0-4.4); Hematocrit 40.8 % (36.0-45.0); Hemoglobin 13.9 g/dL (12.0-15.0); Lymphocytes % 24.4 % (15.3-44.8); MCH 28.8 pg (27.0-35.0); MCHC 34.2 g/dL (32.0-36.0); MCV 84.3 fL (80-100); MPV 8.3 fL (7.6-11.3); Monocytes % 5.3 % (3.3-12.3); Neutrophils % 65.8 % (41.7-73.7); Nucleated Red Blood Cells % 0.1 % (0-0); Platelets 317 thou/uL (152-406); RBC Red Blood Cell Count 4.84 M/uL (3.86-4.86)
[2024-09-24 12:11] LABS: Anion Gap 7.5 mEq/L (5.0-15.0)
[2024-09-24 12:12] LABS: Potassium 4.5 mEq/L (3.5-5.1)
--- NOTE | 2024-09-24 12:20 | RAD REPORT ---
EXAMINATION: US FIRST TRIMESTER TRANSVAGINAL WITH DOPPLER CLINICAL INDICATION: with vaginal bleeding TECHNIQUE: Real-time obstetrical ultrasonography of the maternal pelvis and first trimester was performed transvaginally. Color and spectral Doppler evaluation of the ovaries was performed. COMPARISON: No prior exam. FINDINGS: The uterus measures 9 x 4 x 8 cm. A gestational sac is present within the endometrium. Within this is a pole crown rump length 4 mm. Cardiac activity 111 bpm. Right ovary normal in size and echotexture Left ovary normal in size and echotexture Right and left adnexa unremarkable No significant free fluid IMPRESSION: Single live intrauterine with an estimated gestational age 6 weeks 1 day LEONARDO 05/19/2025
--- NOTE | 2024-09-24 12:47 | ER ---
Nurse's Notes [facility] Name: Kendy Mason Age: 24 yrs Sex: Female : 2000 Arrival Date: 09/24/2024 Time: 10:07 Bed 15 Private MD: Diagnosis: Threatened miscarriage Presentation: 09/24 10:19 Chief complaint: Patient states: vaginal spotting and cramping that began this morning. ss Pt reports she is 5 weeks . Coronavirus screen: Client denies travel out of the [place] in the last 14 days. Ebola Screen: Patient denies exposure to infectious person. Patient denies travel to an Ebola-affected area in the 21 days before illness onset. Initial Sepsis Screen: Does the patient meet any 2 criteria? No. Patient's initial sepsis screen is negative. Does the patient have a suspected source of infection? No. Patient's initial sepsis screen is negative. Risk Assessment: Do you want to hurt yourself or someone else? Patient reports no desire to harm self or others. Onset of symptoms was September 24, 2024. 10:19 Method Of Arrival: Ambulatory ss 10:19 Acuity: PADILLA 3 Triage Assessment: 10:20 General: Appears in no apparent distress. comfortable, Behavior is cooperative, bp appropriate for age, anxious. Pain: Complains of pain in pelvis. EENT: No deficits noted. Neuro: No deficits noted. Cardiovascular: No deficits noted. Respiratory: No deficits noted. GI: Reports cramping. : Reports vaginal bleeding that is spotty. Derm: No deficits noted. Musculoskeletal: No deficits noted. 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 - Infectious Disease History:: Denies. - Social history:: Smoking status: Patient denies any tobacco usage or history of. Screenin:20 [facility] ED Fall Risk Assessment (Adult) History of falling in the last 3 months, bp including since admission No falls in past 3 months (0 pts) Confusion or Disorientation No (0 pts) Intoxicated or Sedated No (0 pts) Impaired Gait No (0 pts) Mobility Assist Device Used No (0 pt) Altered Elimination No (0 pt) Score/Fall Risk Level 0 - 2 = Low Risk Oriented to surroundings. Abuse screen: Denies threats or abuse. Denies injuries from another. Nutritional screening: No deficits noted. Tuberculosis screening: No symptoms or risk factors identified. Assessment: 10:20 General: Appears in no apparent distress. comfortable, Behavior is cooperative, bp appropriate for age, anxious. Vital Signs: 10:19 BP 119 / 81; Pulse 81; Resp 15; Temp 98.2(TE); Pulse Ox 100% on R/A; Weight 77.11 kg; ss Height 5 ft. 3 in. ; Pain 4/10; 13:02 BP 121 / 75; Pulse 79; Resp 16; Pulse Ox 100% ; bp 10:19 Body Mass Index 30.11 (77.11 kg, 160.02 cm) ss 10:19 Pain Scale: Adult ss ED Course: 10:10 Patient arrived in ED. al6 10:12 Mainor Tovar MD is Attending Physician. sp3 10:20 Triage completed. ss 10:20 Arm band placed on right wrist. ss 10:20 Patient has correct armband on for positive identification. bp 10:32 Leonardo Dailey, RN is Primary Nurse. bp 10:35 US Transvaginal Ob Sent. bp 11:24 Initial lab(s) drawn, by me, sent to lab. Urine collected: clean catch specimen, bp cloudy. Inserted saline lock: 20 gauge in right antecubital area, using aseptic technique. 11:38 US Transvaginal Ob In Process Unspecified. EDMS 13:01 No provider procedures requiring assistance completed. IV discontinued, intact, bp bleeding controlled, No redness/swelling at site. Pressure dressing applied. Administered Medications: No medications were administered Medication: 10:20 VIS not applicable for this client. bp Outcome: 12:47 Discharge ordered by . sp3 13:01 Discharged to home ambulatory, bp 13:01 Condition: stable 13:01 Discharge instructions given to patient, Instructed on discharge instructions, follow up and referral plans. Demonstrated understanding of instructions, follow-up care, 13:03 Patient left the ED. bp Signatures: Dispatcher [employer] EDMS Isabella Phillip RN RN Leonardo Dailey, MARTINEZ RN bp Mainor Tovar MD MD sp3 Queenie Zhu al6
--- NOTE | 2024-09-24 12:47 | EDPHYS ---
Physician Documentation [facility] Name: Kendy Mason Age: 24 yrs Sex: Female : 2000 Arrival Date: 09/24/2024 Time: 10:07 Bed 15 Private MD: ED Physician Mainor Tovar HPI: 09/24 11:29 This 24 yrs old Female presents to ER via Ambulatory with complaints of sp3 Abdominal Pain, Vaginal Bleeding - 5 weeks preg. 11:29 24-year-old female A1 at 5 weeks presents with abdominal cramping and vaginal sp3 spotting this morning. She denies any significant bleeding or discharge, upper abdominal pain, back pain, urinary symptoms, syncope, near syncope, bleeding anywhere else, or any other signs or symptoms on ROS at this time.. 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 - Infectious Disease History:: Denies. - Social history:: Smoking status: Patient denies any tobacco usage or history of. ROS: 11:30 Constitutional: Negative for fever, chills, and weight loss, Eyes: Negative for injury, sp3 pain, redness, and discharge, ENT: Negative for injury, pain, and discharge, Neck: Negative for injury, pain, and swelling, Cardiovascular: Negative for chest pain, palpitations, and edema, Respiratory: Negative for shortness of breath, cough, wheezing, and pleuritic chest pain, Abdomen/GI: Negative for abdominal pain, nausea, vomiting, diarrhea, and constipation, Back: Negative for injury and pain, MS/Extremity: Negative for injury and deformity, Skin: Negative for injury, rash, and discoloration, Neuro: Negative for headache, weakness, numbness, tingling, and seizure, Psych: Negative for depression, anxiety, suicide ideation, homicidal ideation, and hallucinations, Allergy/Immunology: Negative for hives, rash, and allergies, 11:30 All other systems are negative, Exam: 11:30 Constitutional: This is a well developed, well nourished patient who is awake, alert, sp3 and in no acute distress. Head/Face: Normocephalic, atraumatic. Eyes: Pupils equal round and reactive to light, extra-ocular motions intact. Lids and lashes normal. Conjunctiva and sclera are non-icteric and not injected. Cornea within normal limits. Periorbital areas with no swelling, redness, or edema. ENT: Nares patent. No nasal discharge, no septal abnormalities noted. External auditory canals are clear. Oropharynx with no redness, swelling, or masses, exudates, or evidence of obstruction, uvula midline. Mucous membranes moist. Neck: Trachea midline, no thyromegaly or masses palpated, and no cervical lymphadenopathy. Supple, full range of motion without nuchal rigidity, or vertebral point tenderness. No Meningismus. Chest/axilla: Normal chest wall appearance and motion. Nontender with no deformity. No lesions are appreciated. Cardiovascular: Regular rate and rhythm with a normal S1 and S2. No gallops, murmurs, or rubs. Normal PMI, no JVD. No pulse deficits. Respiratory: Lungs have equal breath sounds bilaterally, clear to auscultation and percussion. No rales, rhonchi or wheezes noted. No increased work of breathing, no retractions or nasal flaring. Abdomen/GI: Soft, non-tender, with normal bowel sounds. No distension or tympany. No guarding or rebound. No evidence of tenderness throughout. Back: No spinal tenderness. No costovertebral tenderness. Full range of motion. Skin: Warm, dry with normal turgor. Normal color with no rashes, no lesions, and no evidence of cellulitis. MS/ Extremity: Pulses equal, no cyanosis. Neurovascular intact. Full, normal range of motion. Neuro: Awake and alert, GCS 15, oriented to person, place, time, and situation. Cranial nerves II-XII grossly intact. Motor strength 5/5 in all extremities. Sensory grossly intact. Cerebellar exam normal. Normal gait. Psych: Awake, alert, with orientation to person, place and time. Behavior, mood, and affect are within normal limits. 11:30 : Full exam deferred to ultrasound. Mild spotting noted., Vital Signs: 10:19 BP 119 / 81; Pulse 81; Resp 15; Temp 98.2(TE); Pulse Ox 100% on R/A; Weight 77.11 kg; ss Height 5 ft. 3 in. ; Pain 4/10; 13:02 BP 121 / 75; Pulse 79; Resp 16; Pulse Ox 100% ; bp 10:19 Body Mass Index 30.11 (77.11 kg, 160.02 cm) ss 10:19 Pain Scale: Adult ss MDM: 10:20 Medical Screening Exam initiated sp3 11:30 Data reviewed: vital signs, nurses notes, lab test result(s), radiologic studies. ED sp3 course: 24-year-old female with vaginal bleeding in 5 weeks . Differential diagnosis includes threatened , miscarriage in progress, among others. I am not highly suspicious of ectopic . Ultrasound and full labs pending. Disposition pending workup and patient course.. 12:46 ED course: Ultrasound demonstrates 6 weeks 1 day viable IUP without any type of sp3 bleeding. hCG at 27,000. No other abnormalities. We will discharge patient to OB follow-up with diagnosis threatened AB.. 09/24 10:21 Order name: Abo/rh Typing sp3 09/24 10:21 Order name: Basic Metabolic Panel; Complete Time: 12:44 sp3 09/24 10:21 Order name: CBC with Diff sp3 09/24 10:21 Order name: Test, Urine; Complete Time: 12:44 sp3 09/24 10:21 Order name: Quantitative Hcg; Complete Time: 12:44 sp3 09/24 10:21 Order name: Urinalysis w/ reflexes; Complete Time: 12:44 sp3 09/24 12:07 Order name: CBC Smear Scan EDAZ 09/24 10:21 Order name: US Transvaginal Ob; Complete Time: 12:44 sp3 09/24 10:21 Order name: IV Saline Lock; Complete Time: 11:24 sp3 09/24 10:21 Order name: Labs collected and sent; Complete Time: 11:24 sp3 09/24 10:21 Order name: NPO; Complete Time: 10:35 sp3 09/24 12:06 Order name: Labs - recollect needed: recollect abo\E\rh no charge; Complete Time: 13:01 bd Administered Medications: No medications were administered Disposition Summary: 09/24/24 12:47 Discharge Ordered Notes: Location: Home sp3 Condition: Stable sp3 Diagnosis - Threatened miscarriage sp3 Followup: sp3 - With: Private Physician - When: Upon discharge from the Emergency Department - Reason: Continuance of care Discharge Instructions: - Discharge Summary Sheet sp3 - Threatened Miscarriage sp3 Forms: - Work release form bd - Medication Reconciliation Form sp3 - Antibiotic Education sp3 - Prescription Opioid Use sp3 - Patient Portal Instructions sp3 - Leadership Thank You Letter sp3 Signatures: Dispatcher [employer] Jillian Elkins Shelby, RN RN ss Peltier, Brian, RN RN bp Patel, Setul, MD MD sp3
[2024-09-24 13:11] VITALS: TEMP 98.2; O2SAT 100
[2024-09-24 13:26] VITALS: BP 121/75
[2024-09-24 13:32] LABS: Blood Morphology Comment NOT SEEN (NOT SEEN); Platelet Estimate ADEQ; White Blood Cell Scan OK (OK)
== END 2024-09-24 13:03 | disposition home or self-care (01) ==
LOC: ER 10:07
DX: O20.0 Threatened abortion (principal); Z3A.01 Less than 8 weeks gestation of pregnancy
CPT/HCPCS: 36415; 76817; 80048; 81001; 81025; 84702; 85025; 86900; 86901